=== PATIENT | male | born 1985 | race Caucasian/White ===

== ENCOUNTER 2016-06-30 12:17 | Emergency (ER) | payer OTHER ==
[~2016-06-30] VITALS: Ht 185.4 cm; Wt 167.8 kg
[~2016-06-30 12:17] MED LIST: NORCO 10/325 MG1 TAB PO
[2016-06-30 12:55] VITALS: BP 159/94
--- NOTE | 2016-06-30 14:35 | NUR ---
PATIENT PRESENTS TO ED WITH C/O AGGRAVATED BACK PAIN X2 DAYS---DENIES INCONTINENCE DENIES N/V/D; SKIN IS PINK/WARM/DRY; AAOX4 WITH EVEN AND STEADY GAIT; LUNGS CLEAR BL; HR EVEN AND REGULAR; PT DENIES ANY FEVER, CP, SOB, OR COUGH AT THIS TIME; PATIENT STATES PAIN OF 10/10 AT THIS TIME; VSS; PATIENT POSITIONED FOR COMFORT; HOB ELEVATED; BEDRAILS UP X2; BED DOWN. ER MD MADE AWARE OF PT STATUS.
--- NOTE | 2016-06-30 16:00 | NUR ---
Patient being evaluated by physician at bedside.
[2016-06-30] MEDS ORDERED: KETOROLAC 60 MG/2 ML VIAL IM ONE (16:05)
[2016-06-30 16:27] VITALS: BP 133/76
--- NOTE | 2016-06-30 16:27 | NUR ---
Patient discharged with v/s stable. Written and verbal after care instructions given and explained. Patient alert, oriented and verbalized understanding of instructions. Ambulatory with steady gait. All questions addressed prior to discharge. ID band removed. Patient advised to follow up with PMD. Rx of ULTRAM 50 MG given. Patient educated on indication of medication including possible reaction and side effects. Opportunity to ask questions provided and answered.
== END 2016-06-30 16:27 | disposition home or self-care (01) ==
LOC: MED 12:17
DX: M54.5 Low back pain (principal); G89.29 Other chronic pain; F17.200 Nicotine dependence, unspecified, uncomplicated
CPT/HCPCS: 96372; 99283; J1885

== ENCOUNTER 2016-08-05 08:34 | Emergency (ER) | payer OTHER ==
[~2016-08-05] VITALS: Ht 185.4 cm; Wt 166.9 kg
[2016-08-05 08:49] VITALS: BP 150/104
--- NOTE | 2016-08-05 08:54 | NUR ---
PATIENT AMBULATED TO BED 7 AT THIS TIME.
--- NOTE | 2016-08-05 08:58 | NUR ---
31M BIB SELF C/O BACK PAIN X 9 MONTHS AGO; PT STATES INJURED BY [phone] LB COW CARCUS . PT STATES LOC AT TIME OF INCIDENT FOR UNKN AMOUNT OF TIME. PT STATES PAIN IS AT LOWER AND MIDSECTION OF THE BAVCK W/ PAIN SCALE OF 10/10.PT IS OBESE;DENIES CP/SOB/FEVER/N/V/D/COUGH/RUNNY NOSE.PT STATES HE HAD A CONCUSSSION BEFORE;NO ACUTE DISTRESS NOTED AT THIS TIME;HOB ELEVATED;NEEDS ATTENDED;SAFETY PRECAUTION INSTITUTTED;MD CHILDS AWARE OF PT'S CONDITON.
--- NOTE | 2016-08-05 09:05 | NUR ---
MULTIPLE HEALED SCAR AT THE BACK OF THE HEAD NOTED
--- NOTE | 2016-08-05 09:07 | NUR ---
DR GONZALEZ AT BEDSIDE
--- NOTE | 2016-08-05 09:24 | NUR ---
Patient discharged with v/s stable. Written and verbal after care instructions given and explained. Patient alert, oriented and verbalized understanding of instructions. Ambulatory with steady gait. All questions addressed prior to discharge. ID band removed. Patient advised to follow up with PMD. Rx of MOTRIN,ROBAXIN AND NEURONTIN given. Patient educated on indication of medication including possible reaction and side effects. Opportunity to ask questions provided and answered.ADVISED PT TO REFRAIN FROM STRENOUS ACTIVITIES IF POSSIBLE DUE TO WORK CONDITION UNTIL PAIN SUBSIDE.
[2016-08-05 09:25] VITALS: BP 120/71
== END 2016-08-05 09:24 | disposition home or self-care (01) ==
LOC: MED 08:34
DX: G89.29 Other chronic pain (principal); M54.5 Low back pain; F17.210 Nicotine dependence, cigarettes, uncomplicated; Z71.6 Tobacco abuse counseling

== ENCOUNTER 2016-08-24 15:49 | Inpatient (IN) | payer OTHER ==
[~2016-08-24] VITALS: Ht 185.4 cm; Wt 178.3 kg
[2016-08-24 16:06] VITALS: BP 142/51
[2016-08-24] MEDS ORDERED: ACETAMINOPHEN EXTRA STRENGTH 500 MG TAB ONE (16:14)
--- NOTE | 2016-08-24 16:33 | NUR ---
Patient ambulated to bed 5. RN evaluating patient at bedside.
--- NOTE | 2016-08-24 16:41 | NUR ---
PT PRESENTS TO ER W/C/O N/V SINCE THIS AM. PT STATES HE WAS SEEN IN ER AT [facility] FOR RIGHT CALF PAIN AND WAS GIVEN A TORADOL SHOT, AND NOW HAS N/V. PT STATES HE HAS HAD RECENT INFECTION TO SCALP AND HAD PICC LINE FOR IV ABX, AND FEELS THE INFECTION IS BACK. DENIES DIARRHEA; SKIN IS PINK/WARM/DRY; AAOX4 WITH EVEN AND STEADY GAIT; LUNGS CLEAR BL; HR EVEN AND REGULAR; PT DENIES ANY FEVER, CP, SOB, OR COUGH AT THIS TIME; PATIENT STATES PAIN OF 0/10 AT THIS TIME; VSS; PATIENT POSITIONED FOR COMFORT; HOB ELEVATED; BEDRAILS UP X2; BED DOWN. ER MD MADE AWARE OF PT STATUS.
[2016-08-24] MEDS ORDERED: NACL 0.9% 1,000 ML IV ONE (17:05)
[2016-08-24] MEDS ORDERED: VANCOMYCIN 1,000 MG in DEXTROSE 5% 250 ML IV ONE (17:15)
[2016-08-24] MEDS ORDERED: KETOROLAC 30 MG/ML VIAL IVP ONE (17:15)
[2016-08-24] MEDS ORDERED: ONDANSETRON 4 MG/2 ML VIAL IVP ONE (17:15)
[2016-08-24] MEDS ORDERED: VANCOMYCIN 1,000 MG VIAL ONE (17:25)
[2016-08-24] MEDS ORDERED: PIPERACILLIN/TAZOBACTAM 3.375 GM in DEXTROSE 5% 50 ML IV ONE (17:55)
[2016-08-24] MEDS ORDERED: VANCOMYCIN PER PHARMACY MC PRN (18:00)
[2016-08-24] MEDS ORDERED: ONDANSETRON 4 MG/2 ML VIAL IVP PRN (18:05)
--- NOTE | 2016-08-24 18:25 | NUR ---
Patient will be admitted to care of [facility]. Admited to M/S. Will go to room 118A. Belongings list completed. Report to LARA DE LA CRUZ.
[2016-08-24] MEDS ORDERED: PIPERACILLIN/TAZOBACTAM 3.375 GM VIAL IV ONE (18:52)
[2016-08-24] MEDS ORDERED: VANCOMYCIN 500 MG in DEXTROSE 5% 100 ML IV SCH (18:55)
[2016-08-24 19:30] VITALS: BP 131/71
--- NOTE | 2016-08-24 19:30 | NUR ---
PATIENT ADMIT DX SCALP CELLULITIS PATIENT IS AWAKE ALERT ORIENTED DENIES PAIN UPON ADMISSION.SKIN CHECK DONE WITH LARA PICKERING.POSTERIOR HEAD HAS RAISED RED BUMPS AND ALSO SCARS NOTED TO SCALP AND MISSING PATCHES OF HAIR. SLIGHTLY DRAINING SPECKS OF DRAINAGE NOTED ON PATIENTS PILLOW.IVF INFUSING WELL HE WILL CONTINUE TO RECEIVE ANTIBIOTICS ORDERED.[facility] OF THE [facility] COLLECTED AND WILL BE SENT TO THE LAB.ORIENTATION GIVEN TO NURSING CALL LIGHT SYSTEM AND ROOM. AND PLAN OF CARE DISCUSSED WITH THE PATIENT.
--- NOTE | 2016-08-24 19:45 | NUR ---
ZOSYN IV ANTIBIOTIC CONTINUES TO INFUSE WELL.
[2016-08-24] MEDS: NACL 0.9% 1,000 ML IV SCH (20:00)
[2016-08-24] MEDS: PIPERACILLIN/TAZOBACTAM 3.375 GM in DEXTROSE 5% 50 ML IV SCH (20:25)
--- NOTE | 2016-08-24 21:00 | NUR ---
Patient's Plan of Care was discussed and reviewed with MARKETING AND DEVELOPMENT COORDINATOR: AMINATA AYALA
[2016-08-24] MEDS: MORPHINE SULFATE 4 MG/ML SYR IVP PRN (21:21)
[2016-08-25 00:50] VITALS: BP 135/78
[2016-08-25] MEDS: HYDROcodone/APAP 5/325 MG 1 TAB TAB PO PRN ×2 (00:54→21:34)
--- NOTE | 2016-08-25 00:56 | NUR ---
PATIENT IS HUNGRY I GAVE PATIENT A SANDWICH AND SOME JUICE PATIENT SLEEPING ON AND OFF WATCHING TV.CALL LIGHT WITHIN REACH WILL CONTINUE TO MONITOR.
--- NOTE | 2016-08-25 02:20 | NUR ---
PATIENT STABLE RESTING IN BED WATCHING TV.
--- NOTE | 2016-08-25 04:03 | NUR ---
PT WOKE UP DENIES PAIN AT THIS TIME ENCOURAGED TO ASK FOR ASSISTANCE WILL CONTINUE TO MONITOR.
[2016-08-25] MEDS ORDERED: PIPERACILLIN/TAZOBACTAM 3.375 GM VIAL IV ONE (04:12)
[2016-08-25] MEDS ORDERED: VANCOMYCIN 1,000 MG VIAL ONE (04:16)
[2016-08-25] MEDS: PIPERACILLIN/TAZOBACTAM 3.375 GM in DEXTROSE 5% 50 ML IV SCH (04:46)
[2016-08-25] MEDS: MORPHINE SULFATE 4 MG/ML SYR IVP PRN ×2 (04:57→08:55)
[2016-08-25] MEDS ORDERED: VANCOMYCIN 1,500 MG in DEXTROSE 5% 500 ML IV SCH (05:00)
--- NOTE | 2016-08-25 06:17 | NUR ---
PATIENT AWAKE AND STABLE CURRENTLY WATCHING TV.CALL LIGHT WITHIN REACH WILL CONTINUE TO MONITOR.
--- NOTE | 2016-08-25 07:18 | NUR ---
OH,RETA CALLED ME AND GAVE ME A TELEPHONE ORDER TO KEEP PT NPO.I EXPLAINED TO THE PATIENT NOT TO DRINK OR EAT PT VERBALIZES UNDERSTANDING
--- NOTE | 2016-08-25 07:30 | NUR ---
RECEIVED PT IN BED. ALERT, AWAKE, ORIENTEDX4. BREATHING EVEN AND UNLABORED. DENIES ANY PAIN OR DISCOMFORT AT THIS TIME. POSITIVE BOWEL SOUNDS NOTED ON SHIFT. PT ON NPO. PT AMBULATORY. SAFETY PRECAUTION IN PLACE. CALL LIGHT WITHIN REACH.
--- NOTE | 2016-08-25 07:30 | NUR ---
PATIENT IS NPO REPORT ENDORSED AT BEDSIDE TO LARA CLARKE.
--- NOTE | 2016-08-25 07:42 | NUR ---
PATIENT HAS BEEN SCREENED AND CATEGORIZED HIGH NUTRITION RISK. PATIENT WILL BE SEEN WITHIN 1-2 DAYS OF ADMISSION. 08/25/16-08/26/[address]
[2016-08-25 08:00] VITALS: BP 146/91
--- NOTE | 2016-08-25 12:15 | NUR ---
IV G20 INSERTED ON RIGHT HAND. FLUSHING GOOD. NO INFILTRATION NOTED.
--- NOTE | 2016-08-25 12:44 | NUR ---
PT TRANSFERRED TO OR PER SELINA, ON STABLE CONDITION.
--- NOTE | 2016-08-25 12:47 | NUR ---
SAVANNAH PRECEPTOR SPOKE WITH PHARMACIST ASHWIN REGARDING ZOSYN IVPB AND VANCO IVPB DUE TO BE HUNG AT 1300. PHARMACIST WILL SEND IT ORDER TO OR.
[2016-08-25] MEDS: PIPER/TAZO 3.375GM/D5W PREMIX 50 ML IV SCH ×2 (13:00→20:48)
[2016-08-25] MEDS: VANCOMYCIN 1,500 MG in DEXTROSE 5% 500 ML IV SCH ×2 (13:00→20:51)
[2016-08-25] MEDS ORDERED: BUPIVACAINE-MPF/EPI 0.25% 30 ML VIAL INJ ONE (13:02)
[2016-08-25] MEDS ORDERED: DESFLURANE 240 ML BTL INH ONE (13:09)
[2016-08-25] MEDS ORDERED: ONDANSETRON 4 MG/2 ML VIAL IVP ONE (13:09)
[2016-08-25] MEDS ORDERED: PROPOFOL 200 MG/20 ML VIAL IV ONE (13:09)
[2016-08-25] MEDS ORDERED: LIDOCAINE 1% 50 ML ONE (13:09)
[2016-08-25] MEDS ORDERED: DEXAMETHASONE 4 MG/ML VIAL IVP ONE (13:09)
[2016-08-25] MEDS ORDERED: fentaNYL 0.05 MG/ML VIAL ONE ×2 (13:18→13:56)
[2016-08-25] MEDS ORDERED: MIDAZOLAM 2 MG/2 ML VIAL ONE (13:19)
[2016-08-25] MEDS ORDERED: ONDANSETRON 4 MG/2 ML VIAL IVP PRN (13:50)
[2016-08-25] MEDS ORDERED: LIDOCAINE 1% 500 MG/50 ML VIAL INJ ONE (14:16)
[2016-08-25] MEDS: HYDROmorphone 1 MG/ML AMP IVP PRN ×4 (14:40→15:10)
[2016-08-25] MEDS ORDERED: HYDROmorphone PFS 2 MG/ML SYR ONE (14:51)
--- NOTE | 2016-08-25 16:38 | NUR ---
SPOKE WITH CAITLIN AT [employer]. FAXED INITIAL REVIEW TO [phone] PHONE [phone]
[2016-08-25] MEDS: NACL 0.9% 1,000 ML IV SCH ×2 (16:58→20:43)
--- NOTE | 2016-08-25 19:26 | NUR ---
PT ALERT, AWAKE, NO COMPLAINTS OF PAIN OR DISCOMFORT AT THIS TIME. ENDORSED TO GENERAL DOC NURSE FOR CONTINUITY OF CARE. PT KEPT CLEAN DRY AND COMFORTABLE. NEEDS ATTENDED.
--- NOTE | 2016-08-25 19:30 | NUR ---
RECEIVED REPORT FROM DAY SHIFT NURSE. MI IS AAOX4, HAS NO COMPLAIN OF PAIN AT THIS TIME. NO S/S OF RESPIRATORY DISTRESS/DISCOMFORT NOTED. HAS DRESSING TO HIS HEAD, INTACT. IV SITE IS PATENT AND INTACT. PLAN OF CARE DISCUSSED, VERBALIZED UNDERSTANDING. SAFETY MEASURES CHECKED, CALL LIGHT WITHIN REACH. WILL CONTINUE TO MONITOR.
[2016-08-25 20:00] VITALS: BP 144/80
--- NOTE | 2016-08-25 20:51 | NUR ---
DUE MEDS GIVEN. PT TOLERATED WELL. NO SIGNS OF DISTRESS.
--- NOTE | 2016-08-25 21:13 | NUR ---
NO DISTRESS/SOB NOTED AT THIS TIME. PT INFORMED OF ORDER FOR CPAP WHILE SLEEPING, HOWEVER PT IS REFUSING TO USE CPAP, STATES HE IS CLAUSTROPHOBIC AND IT WILL MAKE HIM VOMIT. ALSO IT WOULD NOT BE POSSIBLE TO SECURE FACE MASK DUE TO PT HAVING A BANDAGE AROUND HIS HEAD DUE TO A SURGERY THIS AFTERNOON AND STILL HAS DRAINAGE FROM SITE, PT RN, MARY INFORMED OF PT REFUSAL AND THAT IT IS NOT POSSIBLE TO SECURE MASK IN PLACE FOR PROPER USE OF CPAP. PT RN WILL INFORM ORDERING MD.
[2016-08-26] VITALS: BP 146/72
--- NOTE | 2016-08-26 | NUR ---
PT ACCIDENTALLY REMOVED HIS DRESSING TO HIS HEAD. PT STATED " I WAS SLEEPING AND I WAS DREAMING THEN SUDDENLY I ACCIDENTALLY REMOVED MY DRESSING". PT APPLIED A DRY DRESSING TO HIS HEAD, HEALTH TEACHING DONE, VERBALIZED UNDERSTANDING. V/S CHECKED AND STABLE. NO COMPLAIN OF PAIN.
--- NOTE | 2016-08-26 02:18 | NUR ---
PT SLEEPING AT THIS TIME. CALL LIGHT WITHIN REACH.
[2016-08-26 04:00] VITALS: BP 113/93
--- NOTE | 2016-08-26 04:45 | NUR ---
RECEIVED A CALL FROM JASON(LABORATORY), REPORTED A CRITICAL VALUE OF VANCOMYCIN TROUGH OF 15.9. READ BACK AND VERIFIED. WILL INFORM CHARGE NURSE.
--- NOTE | 2016-08-26 04:53 | NUR ---
CALLED PHARMACY AND SPOKE WITH SAIRA VIA PHONE. REPORTED THE RESULT OF VANCOMYCIN TROUGH AND STATED " OK TO GIVE" CHARGE NURSE MADE AWARE.
[2016-08-26] MEDS: PIPER/TAZO 3.375GM/D5W PREMIX 50 ML IV SCH ×3 (05:13→20:48)
[2016-08-26] MEDS: VANCOMYCIN 1,500 MG in DEXTROSE 5% 500 ML IV SCH (05:38)
--- NOTE | 2016-08-26 07:30 | NUR ---
ENDORSED REPORT TO DAY SHIFT NURSE FOR CONTINUITY OF CARE. PT IS STABLE.
--- NOTE | 2016-08-26 07:40 | NUR ---
RECEIVED PT SLEEPING IN BED COMFORTABLY AND WAS IN NO DISTRESS. PT EASILY AWAKENED AND VOICED NO C/O PAIN AT THIS TIME. PT'S SCALP DRESSINGS NOTED TO BE CLEAN, DRY AND INTACT. PLAN OF CARE, MEDS, TREATMENTS AND SAFETY DISCUSSED WITH PT AND PT VERBALIZED UNDERSTANDING. WILL CONTINUE TO CHECK ON PT.
[2016-08-26 08:00] VITALS: BP 141/86
--- NOTE | 2016-08-26 09:30 | NUR ---
PT TOOK DIET AND FLUIDS WELL . PT AMBULATING IN HIS ROOM WITH STEADY GAIT.
[2016-08-26] MEDS: NACL 0.9% 1,000 ML IV SCH ×2 (10:03→23:23)
--- NOTE | 2016-08-26 10:59 | NUR ---
08/26/16 RD INITIAL ASSESSMENT COMPLETED PLEASE REFER TO NUTRITION ASSESSMENT UNDER CARE ACTIVITY FOR ESTIMATED NUTRITIONAL NEEDS. RD RECOMMENDATIONS: 1. CONTINUE REGULAR DIET TOLERATED 2. ENCOURAGE ADEQUATE PO INTAKE FOR SURGICAL HEALING 3. RD WILL F/U 3-5 DAYS; MODERATE RISK. GERIR PINON RD
[2016-08-26 12:00] VITALS: BP 124/81
[2016-08-26] MEDS: HYDROcodone/APAP 5/325 MG 1 TAB TAB PO PRN (12:13)
--- NOTE | 2016-08-26 12:13 | NUR ---
PT MEDICATED WITH NORCO PER PRN ORDER FOR C/O PAIN IN HIS SCALP 10/01. WILL CONTINUE TO MONITOR PT.
[2016-08-26] MEDS: ENOXAPARIN 40 MG/0.4 ML SYR SUBQ SCH (12:41)
[2016-08-26] MEDS: VANCOMYCIN 1,250 MG in DEXTROSE 5% 250 ML IV SCH ×2 (13:40→21:34)
--- NOTE | 2016-08-26 14:55 | NUR ---
FAXED CONCURRENT REVIEW TO [facility] [phone] PHONE JERARDO [phone]
[2016-08-26 16:00] VITALS: BP 123/70
--- NOTE | 2016-08-26 16:59 | NUR ---
WOUND CARE NOTES: DRESSING CHANGE DONE RE: S/P I&D AND EXCISIONAL DEBRIDEMENT 08/25/[address] LOCKHART. PICTURES OBTAINED AND PLACED IN THE CHART. PATIENT TOLERATED PROCEDURE WELL.
[2016-08-26] MEDS ORDERED: GAUZE TP PRN (17:05)
[2016-08-26] MEDS: MORPHINE SULFATE 4 MG/ML SYR IVP PRN (17:09)
--- NOTE | 2016-08-26 17:09 | NUR ---
PT MEDICATED WITH MORPHINE PER PRN ORDER FOR PAIN 9/10 IN PT'S SCALP SURGICAL SITE POST DRESSINGS CHANGE.
--- NOTE | 2016-08-26 19:29 | NUR ---
REPORT GIVEN TO MARY BERMUDEZ AT BEDSIDE. PT STATED THAT HIS PAIN WAS BETTER.
--- NOTE | 2016-08-26 19:35 | NUR ---
LOIDA. REPORT FROM LARA HERNANDEZ FOR CONTINUITY OF CARE. PATIENT SITTING ON BED, AWAKE, A/OX4, PLEASANT AND COOPERATIVE. RESPIRATION EVEN AND UNLABORED. IV OF NS INFUSING AT 75 ML/HR RIGHT AC G20. WOUND IN THE HEAD COVERED WITH DRESSING DRY AND INTACT. PLAN OF CARE FOR THE SHIFT DISCUSSED. VERBALIZED UNDERSTANDING. PAIN IN THE SITE 06/03, STATED TOLERABLE. WILL MEDICATE ORDERED. WILL CALL NURSE WHEN PAIN INCREASES. ON IV ANTIBIOTICS.
[2016-08-26 20:00] VITALS: BP 123/62
--- NOTE | 2016-08-26 20:00 | NUR ---
Patient's Plan of Care was discussed and reviewed with AUTOMOTIVE GENERAL MANAGER: GERMANIA ANDERSON
--- NOTE | 2016-08-26 20:48 | NUR ---
DUE ZOSYN 3.375 MG IVPB ADMINISTERED AT THIS TIME.
--- NOTE | 2016-08-26 21:00 | NUR ---
TAKE SHOWER, BACK TO BED AFTER TAKING A BATH.
--- NOTE | 2016-08-26 21:34 | NUR ---
DUE VANCOCIN ADMINISTERED AT THIS TIME.
[2016-08-27] VITALS: BP 132/83
[2016-08-27] MEDS: MORPHINE SULFATE 4 MG/ML SYR IVP PRN ×2 (00:16→04:56)
--- NOTE | 2016-08-27 01:00 | NUR ---
IN THE BR SPEAKING WITH SOMEBODY IN THE CELLPHONE. BACK TO BED AND ADVISED TO GO BACK TO SLEEP.
[2016-08-27] MEDS: VANCOMYCIN 1,250 MG in DEXTROSE 5% 250 ML IV SCH ×2 (04:13→14:13)
--- NOTE | 2016-08-27 04:13 | NUR ---
VANCOCIN 1250 MG ADMINISTERED IVPB. NO ADVERSE REACTIONS TO ANTIBIOTIC THERAPY NOTED AT THIS TIME.
[2016-08-27] MEDS: PIPER/TAZO 3.375GM/D5W PREMIX 50 ML IV SCH ×2 (04:57→13:35)
--- NOTE | 2016-08-27 06:00 | NUR ---
AMBULATED TO BR TO VOID. GAIT STEADY.
--- NOTE | 2016-08-27 07:23 | NUR ---
RECEIVED REPORT FROM SABRINA SOLO. PT IS A/OX4, IV IS ON RT AC, PATENT, INTACT, INFUSING WELL, PT HAS SCALP CELLULITIS, DRESSING IN PLACE AND INTACT, NO S/S OF RESPIRATORY DISTRESS OR DISCOMFORT NOTED, SAFETY/FALL PRECAUTIONS IN PLACE DISCUSSED PLAN OF CARE WITH PT, PT VERBALIZED UNDERSTANDING, CALL LIGHT IS WITHIN REACH, WILL CONTINUE TO MONITOR.
--- NOTE | 2016-08-27 07:25 | NUR ---
CONDITION REMAIN STABLE. ENDORSED TO LARA MCBRIDE FOR CONTINUITY OF CARE.
[2016-08-27] MEDS ORDERED: KEFLEX250 MG PO (07:52)
[2016-08-27] MEDS ORDERED: PERCOCET 325 MG1 TA1 PO (07:55)
[2016-08-27 08:00] VITALS: BP 128/76
[2016-08-27] MEDS: ENOXAPARIN 40 MG/0.4 ML SYR SUBQ SCH (08:46)
--- NOTE | 2016-08-27 09:50 | NUR ---
DUE MEDICATIONS GIVEN. PT TOLERATED WELL, NO S/S OF RESPIRATORY DISTRESS OR DISCOMFORT NOTED, CALL LIGHT WITHIN REACH, WILL CONTINUE TO MONITOR.
--- NOTE | 2016-08-27 11:12 | NUR ---
CM NOTE FAXED CONCURRENT REVIEW TO [facility] [phone] PHONE [facility] [phone]
--- NOTE | 2016-08-27 11:55 | NUR ---
PT SITTING IN BED WATCHING TV.
[2016-08-27] MEDS ORDERED: GAUZE TP SCH (13:00)
--- NOTE | 2016-08-27 13:00 | NUR ---
PT DRESSING CHANGED MINIMAL DRAINAGE NOTED, PT TOLERATED WELL. CALL LIGHT WITHIN REACH, WILL CONTINUE TO MONITOR.
--- NOTE | 2016-08-27 13:00 | NUR ---
DUE MEDICATIONS GIVEN. PT TOLERATED WELL, WILL CONTINUE TO MONITOR.
[2016-08-27] MEDS: NACL 0.9% 1,000 ML IV SCH (13:30)
--- NOTE | 2016-08-27 14:30 | NUR ---
0125 CALL PLACED TO ISABEL BURCIAGA AT [facility] [phone] AND LEFT REQUESTING AUTHORIZATION FOR HOME HEALTH VISITS FOR WOUND CARE AND NAME OF CONTRACTED AGENCY.
--- NOTE | 2016-08-27 15:01 | NUR ---
PATRICA NOTE 1400 CALL PLACED TO ISABEL BURCIAGA AT [facility] [phone] AND LEFT REQUESTING AUTHORIZATION FOR HOME HEALTH VISITS FOR WOUND CARE AND NAME OF CONTRACTED AGENCY. NO CALL BACK.
--- NOTE | 2016-08-27 15:20 | NUR ---
PATRICA WING RECEIVED CALL FROM ALLIED PHYSICIAN ABIMBOLA HALL PH# [phone] AND SHE SAID TO GO AHEAD AND USE [facility] AND TO HAVE THEM CALL HER FOR THE AUTH NUMBER. PATRICA HERRERA AND ARTURO RODRÍGUEZ AWARE. Addendum: 08/27/16 at 1525 by Janet Joyner CM CHARGE NURSE ANAIS PARKER [phone]
--- NOTE | 2016-08-27 15:30 | NUR ---
INFORMED PT DR. LOCKHART HAD ORDERED HIS DISCHARGE. PT VERBALIZED UNDERSTANDING
--- NOTE | 2016-08-27 16:00 | NUR ---
PT DISCHARGE INSTRUCTIONS GIVEN, REMOVED ID WRIST BAND, REMOVED IV, CATHETER TIP INTACT. PT STABLE UPON DISCHARGE.
--- NOTE | 2016-08-27 16:26 | NUR ---
SS NOTE: PER OLGA FROM [facility] ([phone]), THEY WILL FOLLOW UP WITH PT AT HOME.
== END 2016-08-27 16:50 | disposition home health service (06) | DRG 570 ==
LOC: MED 15:49 → MTU 18:05
PROVIDERS: ADMIT Hospitalist; ATTEND Hospitalist
PROC: 0W900ZZ Drainage of Head, Open Approach (ICD-10-PCS; 2016-08-25)
PROC: 0JB00ZZ Excision of Scalp Subcutaneous Tissue and Fascia, Open Approach (ICD-10-PCS; principal; 2016-08-25 12:30)
DX: L02.811 Cutaneous abscess of head [any part, except face] (principal); J18.9 Pneumonia, unspecified organism; Z68.43 Body mass index [BMI] 50.0-59.9, adult; E66.01 Morbid (severe) obesity due to excess calories; F17.210 Nicotine dependence, cigarettes, uncomplicated; G47.30 Sleep apnea, unspecified; I10 Essential (primary) hypertension; L03.811 Cellulitis of head [any part, except face]

== ENCOUNTER 2016-09-29 11:45 | Emergency (ER) | payer OTHER ==
[~2016-09-29] VITALS: Ht 185.4 cm; Wt 165.6 kg
[~2016-09-29 11:45] MED LIST changes: +KEFLEX250 MG PO; +PERCOCET 325 MG1 TA1 PO
[2016-09-29 11:52] VITALS: BP 159/71
--- NOTE | 2016-09-29 11:57 | NUR ---
PATIENT TAKEN TO BED # 8
--- NOTE | 2016-09-29 11:58 | NUR ---
PATIENT PRESENTS TO ED WITH C/O PAIN ON SCALP X2 DAYS; PT STATES HAD SURGERY ON SCALP ON LAST VISIT NOW ITS DRAINING WITH BURNING PAIN SENSATION. DENIES N/V/D; SKIN IS PINK/WARM/DRY; AAOX4 WITH EVEN AND STEADY GAIT; LUNGS CLEAR BL; HR EVEN AND REGULAR; PT DENIES ANY FEVER, CP, SOB, OR COUGH AT THIS TIME; PATIENT STATES PAIN OF 7/10 AT THIS TIME; VSS; PATIENT POSITIONED FOR COMFORT; HOB ELEVATED; BEDRAILS UP X2; BED DOWN. ER MD MADE AWARE OF PT STATUS.
--- NOTE | 2016-09-29 11:59 | NUR ---
AAO PT BEING ASSESS BY DR MONIQUE AT BEDSIDE
[2016-09-29 12:19] VITALS: BP 127/90
== END 2016-09-29 12:19 | disposition home or self-care (01) ==
LOC: MED 11:45
DX: L02.811 Cutaneous abscess of head [any part, except face] (principal); R03.0 Elevated blood-pressure reading, without diagnosis of hypertension

== ENCOUNTER 2016-10-08 17:02 | Emergency (ER) | payer OTHER ==
[~2016-10-08] VITALS: Ht 185.4 cm; Wt 167.8 kg
[2016-10-08 17:18] VITALS: BP 159/93
--- NOTE | 2016-10-08 19:55 | NUR ---
PT TAKEN TO BED 8
--- NOTE | 2016-10-08 19:57 | NUR ---
Dr. Lang evaluating patient at bedside.
--- NOTE | 2016-10-08 20:00 | NUR ---
31Y/M PATIENT PRESENTS TO ED WITH HEADACHE X 1 DAY. PT STATES HAVING HEADACHE AND LT. SIDE NUMBNESS . DENIES N/V/D; SKIN IS PINK/WARM/DRY; AAOX4 WITH EVEN AND STEADY GAIT; LUNGS CLEAR BL; HR EVEN AND REGULAR; PT DENIES ANY FEVER, CP, SOB, OR COUGH AT THIS TIME; PATIENT STATES PAIN OF 0/10 AT THIS TIME; VSS; PATIENT POSITIONED FOR COMFORT; HOB ELEVATED; BEDRAILS UP X2; BED DOWN. ER MD MADE AWARE OF PT STATUS.
[2016-10-08] MEDS ORDERED: KETOROLAC 60 MG/2 ML VIAL IM ONE (20:05)
--- NOTE | 2016-10-08 21:00 | NUR ---
Patient discharged with v/s stable. Written and verbal after care instructions given and explained. Patient alert, oriented and verbalized understanding of instructions. Ambulatory with steady gait. All questions addressed prior to discharge. ID band removed. Patient advised to follow up with PMD. Rx of MOTRIN 800 MG given. Patient educated on indication of medication including possible reaction and side effects. Opportunity to ask questions provided and answered.
[2016-10-08 21:04] VITALS: BP 125/77
== END 2016-10-08 21:00 | disposition home or self-care (01) ==
LOC: MED 17:02
DX: R51 Headache (principal); R03.0 Elevated blood-pressure reading, without diagnosis of hypertension; Z71.6 Tobacco abuse counseling
CPT/HCPCS: 96372; 99283; J1885

== ENCOUNTER 2017-08-03 18:13 | Emergency (ER) | payer OTHER ==
[~2017-08-03] VITALS: Ht 185.4 cm; Wt 176.4 kg
[~2017-08-03 18:13] MED LIST changes: +ACET-2858 PO; +ACET-5629 PO; +CEPH250C16 PO; -KEFLEX250 MG PO; -NORCO 10/325 MG1 TAB PO; -PERCOCET 325 MG1 TA1 PO
[2017-08-03 18:19] VITALS: BP 141/86
--- NOTE | 2017-08-03 18:30 | NUR ---
PATIENT PRESENTS TO ED WITH SOB AND INTERMITTENT PRODUCTIVE COUGH X 4 DAYS, "FELT HOT TODAY" "BURNING SENSATION" CHEST PAIN WITH DEEP BREATHING. RESP EVEN AND UNLABORED, IN NAD. MED HX: NONE RX: NONE . DENIES N/V/D; SKIN IS PINK/WARM/DRY; AAOX4 WITH EVEN AND STEADY GAIT; LUNGS CLEAR BL; HR EVEN AND REGULAR; PT DENIES ANY FEVER, CP, SOB, OR COUGH AT THIS TIME; PATIENT STATES PAIN OF 0/10 AT THIS TIME; VSS; PATIENT POSITIONED FOR COMFORT; ER MD MADE AWARE OF PT STATUS.
--- NOTE | 2017-08-03 19:18 | NUR ---
PT TAKEN OFF THE UNIT FOR XRAY
--- NOTE | 2017-08-03 19:25 | NUR ---
REPORT GIVEN TO LARA PATTERSON FOR CONTINUATION OF CARE
[2017-08-03 20:20] VITALS: BP 157/96
--- NOTE | 2017-08-03 20:20 | NUR ---
Patient discharged with v/s stable. Written and verbal after care instructions given and explained. Patient alert, oriented and verbalized understanding of instructions. Ambulatory with steady gait. All questions addressed prior to discharge. ID band removed. Patient advised to follow up with PMD. Rx of ALBUTEROL, ZITRHOMAX, ROBITUSSIN given. Patient educated on indication of medication including possible reaction and side effects. Opportunity to ask questions provided and answered.
== END 2017-08-03 20:20 | disposition home or self-care (01) ==
LOC: MED 18:13
DX: J40 Bronchitis, not specified as acute or chronic (principal); Z79.899 Other long term (current) drug therapy
CPT/HCPCS: 71046; 99284

== ENCOUNTER 2017-10-23 06:05 | Emergency (ER) | payer OTHER ==
[~2017-10-23] VITALS: Ht 185.4 cm; Wt 171.5 kg
--- NOTE | 2017-10-23 06:10 | NUR ---
PT AMBULATED TO ER BED 12
[2017-10-23 06:12] VITALS: BP 119/83
--- NOTE | 2017-10-23 06:35 | NUR ---
32Y/M PT C/O ABD PAIN TO RT SIDE X3 DAYS, W/ N/V. ABD IS ROUND, SOFT, TENDER TO RT SIDE, ACTIVE BS X4. PT STATES PAIN RADIATES TO BACK UPON MOVEMENT. PT APPEARS TO BE IN NO ACUTE DISTRESS AT THIS TIME. PMH CHRONIC BACK PAIN NKDA
--- NOTE | 2017-10-23 07:16 | NUR ---
RECEIVED REPORT FROM ANNALISE BERMUDEZ FOR CONTINUITY OF CARE.
--- NOTE | 2017-10-23 07:18 | NUR ---
Patient being evaluated by physician at bedside.
[2017-10-23] MEDS ORDERED: NACL 0.9% 1,000 ML IV SCH (07:23)
[2017-10-23] MEDS ORDERED: GLYCOPYRROLATE 0.2 MG/ML VIAL IV ONE (07:25)
[2017-10-23] MEDS ORDERED: METOCLOPRAMIDE 10 MG/2 ML INJ VIAL IVP ONE (07:25)
[2017-10-23] MEDS ORDERED: HYDROmorphone PFS 2 MG/ML SYR IVP ONE (07:25)
[2017-10-23] MEDS ORDERED: KETOROLAC 30 MG/ML VIAL IVP ONE (07:25)
--- NOTE | 2017-10-23 07:25 | NUR ---
PT APPEARS TO BE TALKING ON PHONE IN NO APPEART DISTRESS. WILL CONTINUE TO MONITOR.
[2017-10-23 07:42] LABS: BASOPHILS # (AUTO) 0.1 K/uL (0.00-0.22); BASOPHILS % (AUTO) 0.8 % (0.0-2.0); EOSINOPHILS # (AUTO) 0.2 K/uL (0-0.4); EOSINOPHILS % (AUTO) 1.7 % (0.0-4.0); HEMATOCRIT 43.8 % (36-52); HEMOGLOBIN 14.3 g/dL (12.0-18.0); LYMPHOCYTES # (AUTO) 4.8 K/uL (2.0-11.5); LYMPHOCYTES % (AUTO) 39.5 % (20.5-51.1); MEAN CORPUSCULAR HEMOGLOBIN 29 pg (27-31); MEAN CORPUSCULAR HGB CONC 33 g/dL (33-37); MEAN CORPUSCULAR VOLUME 87.9 fL (80-94); MONOCYTES % (AUTO) 7.9 % (1.7-9.3); NEUTROPHILS % (AUTO) 50.1 % (42.2-75.2); PLATELET COUNT (AUTO) 294 K/uL (140-450); RED BLOOD CELL COUNT(AUTO) 4.99 MIL/uL (4.20-6.10); RED CELL DISTRIBUTION WIDTH 14.2 % (11.6-13.7); WHITE BLOOD COUNT (AUTO) 12.1 K/uL (4.8-10.8)
[2017-10-23 07:51] LABS: APPEARANCE,URINE CLEAR (CLEAR); BILIRUBIN,URINE NEGATIVE (NEGATIVE); BLOOD, URINE NEGATIVE (NEGATIVE); COLOR,URINE YELLOW (YELLOW); LEUKOCYTE ESTERASE ,URINE NEGATIVE (NEGATIVE); NITRITE, URINE NEGATIVE (NEGATIVE); UGLUCOSE NEGATIVE (NEGATIVE)
[2017-10-23 07:53] LABS: ANION GAP 11.1 (8-16); CARBON DIOXIDE 28.2 mmol/L (21-32); POTASSIUM 4.3 mmol/L (3.5-5.1)
[2017-10-23 07:55] LABS: RBC,URINE 0-5 (RARE) /HPF (0-5); WBC,URINE 0-5 (RARE) /HPF (0-5)
--- NOTE | 2017-10-23 08:05 | NUR ---
ULTRASOUND AT BEDSIDE
[2017-10-23 08:06] LABS: ALBUMIN 3.3 g/dL (3.4-5.0); TOTAL BILIRUBIN 0.3 mg/dL (0.0-1.0)
--- NOTE | 2017-10-23 08:43 | NUR ---
PT TO CT WITH [facility] M[facility]INE [facility]PER[facility]. PT IN NO APPARENT DISTRESS AT THIS TIME
--- NOTE | 2017-10-23 09:05 | NUR ---
PT BACK FROM CT. VSS. WILL CONTINUE TO MONITOR
[2017-10-23 10:28] VITALS: BP 135/79
--- NOTE | 2017-10-23 10:28 | NUR ---
Patient discharged with v/s stable. Written and verbal after care instructions given and explained. Patient alert, oriented and verbalized understanding of instructions. Ambulatory with steady gait. All questions addressed prior to discharge. ID band removed. Patient advised to follow up with PMD. Rx of LEVSIN SL given. Patient educated on indication of medication including possible reaction and side effects. Opportunity to ask questions provided and answered.
== END 2017-10-23 10:28 | disposition home or self-care (01) ==
LOC: MED 06:05
DX: K80.20 Calculus of gallbladder without cholecystitis without obstruction (principal); E66.01 Morbid (severe) obesity due to excess calories; R11.0 Nausea; F17.210 Nicotine dependence, cigarettes, uncomplicated; Z79.899 Other long term (current) drug therapy
CPT/HCPCS: 36415; 74177; 76705; 80053; 81001; 82150; 83690; 85025; 96361; 96374; 96375; 99285; J1170; J1885; J3490; Q0092; Q9967

== ENCOUNTER 2017-11-24 06:05 | Emergency (ER) | payer OTHER ==
[~2017-11-24] VITALS: Ht 185.4 cm; Wt 171.5 kg
[2017-11-24 06:11] VITALS: BP 128/88
--- NOTE | 2017-11-24 06:13 | NUR ---
TO BED # 5 AMBULATORY
--- NOTE | 2017-11-24 06:20 | NUR ---
32/M CAME IN ED, C/O 03/03 CONSTANT ACHING, DULL EAR PAIN, RADIATING TO R SIDE OF FACE, X3 DAYS. PT DENIES TRAUMA, NO OBVIOUS ABNORMALITY NOTED. HX GALLSTONE. PT DENIES N/V/D; SKIN IS INTACT, PINK/WARM/DRY; AAOX4, PERRL, WITH EVEN AND STEADY GAIT; LUNGS CLEAR BL, BREATHING UNLABORED; HR EVEN AND REGULAR, BL PERIPHERAL PULSES PRESENT; BS ACTIVE X4, NO TENDERNESS TO PALPATION; PT DENIES ANY FEVER, CP, SOB, OR COUGH AT THIS TIME; PATIENT POSITIONED FOR COMFORT; HOB ELEVATED; BEDRAILS UP X2; BED DOWN.
--- NOTE | 2017-11-24 06:23 | NUR ---
Dr. Siegel evaluating patient at bedside.
[2017-11-24] MEDS ORDERED: ACETAMINOPHEN EXTRA STRENGTH 500 MG TAB PO ONE (06:25)
[2017-11-24 06:42] VITALS: BP 128/88
--- NOTE | 2017-11-24 06:42 | NUR ---
Patient discharged with v/s stable. Written and verbal after care instructions given and explained. Patient alert, oriented and verbalized understanding of instructions. Ambulatory with steady gait. All questions addressed prior to discharge. ID band removed. Patient advised to follow up with PMD. Rx of TYLENOL, AUGMENTIN given. Patient educated on indication of medication including possible reaction and side effects. Opportunity to ask questions provided and answered.
== END 2017-11-24 06:42 | disposition home or self-care (01) ==
LOC: MED 06:05
DX: H65.91 Unspecified nonsuppurative otitis media, right ear (principal); K21.9 Gastro-esophageal reflux disease without esophagitis
CPT/HCPCS: 99283

== ENCOUNTER 2017-11-25 06:59 | Emergency (ER) | payer OTHER ==
[~2017-11-25] VITALS: Ht 185.4 cm; Wt 171.5 kg
[2017-11-25 07:14] VITALS: BP 145/89
--- NOTE | 2017-11-25 07:17 | NUR ---
PATIENT AMBULATED TO BED#11
--- NOTE | 2017-11-25 07:30 | NUR ---
PATIENT PRESENTS TO ED WITH COMPLAINTS OF RIGHT EAR PAIN. PATIENT REPORTS BEING SEEN YESTERDAY AND WAS DIAGNOSED WITH EAR INFECTION. PATIENT WAS PRESECRIBED TYLENOL AND AUGMENTIN; PATIENT STATES NO RELIEF FROM PAIN. DENIES N/V/D; SKIN IS PINK/WARM/DRY; AAOX4 WITH EVEN AND STEADY GAIT; LUNGS CLEAR BL; HR EVEN AND REGULAR; PT DENIES ANY FEVER, CP, OR SOB AT THIS TIME; PATIENT STATES PAIN OF 9/10 AT THIS TIME; VSS; PATIENT POSITIONED FOR COMFORT; HOB ELEVATED; BEDRAILS UP X1; BED DOWN. ER MD MADE AWARE OF PT STATUS.
[2017-11-25] MEDS ORDERED: IBUPROFEN 800 MG TAB PO ONE (07:45)
--- NOTE | 2017-11-25 07:55 | NUR ---
PATIENT WAS ORDERED 800 MOTRIN; PATIENT REFUSED. ED MD MADE AWARE.
[2017-11-25] MEDS ORDERED: ACETAMINOPHEN EXTRA STRENGTH 500 MG TAB PO ONE (08:00)
--- NOTE | 2017-11-25 08:05 | NUR ---
PATIENT REFUSED TYLENOL. ED MD MADE AWARE.
--- NOTE | 2017-11-25 08:08 | NUR ---
PATIENT REUSED TREATMENT AND LEFT ED. ED MD MADE AWARE.
[2017-11-25 08:10] VITALS: BP 145/89
== END 2017-11-25 08:08 | disposition left against medical advice (07) ==
LOC: MED 06:59
DX: H60.501 Unspecified acute noninfective otitis externa, right ear (principal); R03.0 Elevated blood-pressure reading, without diagnosis of hypertension; K21.9 Gastro-esophageal reflux disease without esophagitis
CPT/HCPCS: 99283

== ENCOUNTER 2018-05-12 02:00 | Emergency (ER) | payer SELFPAY ==
[~2018-05-12] VITALS: Ht 185.4 cm; Wt 205.0 kg
[~2018-05-12 02:00] MED LIST changes: -ACET-2858 PO; +HYDR-5092 PO
[2018-05-12 02:05] VITALS: BP 168/108
--- NOTE | 2018-05-12 02:08 | NUR ---
PT AMBULATORY TO ER BED 3.
[2018-05-12] MEDS ORDERED: LIDOCAINE 2% 1000 MG/50 ML VIAL INJ ONE (02:10)
--- NOTE | 2018-05-12 02:15 | NUR ---
PT PRESENTS TO ED WITH C/O ABSCESS TO RIGHT HEAD WITH INCREASING PAIN X 2 DAYS. PT REPORTS PREVIOUS HX OF ABSCESS TO HEAD. NO BLEEDING, DISCHARGE, OR REDNESS TO SITE. PT PLACED INTO BED, PENDING MD VANG.
[2018-05-12] MEDS ORDERED: SULFAMETH/TRIMETH DS 800/160MG 1 TAB PO ONE (03:20)
[2018-05-12] MEDS ORDERED: KETOROLAC 60 MG/2 ML VIAL IM ONE (03:20)
--- NOTE | 2018-05-12 03:48 | NUR ---
Patient discharged with v/s stable. Written and verbal after care instructions given and explained. Patient alert, oriented and verbalized understanding of instructions. Ambulatory with steady gait. All questions addressed prior to discharge. ID band removed. Patient advised to follow up with PMD. Rx of BACTRIM, TRAMADOL given. Patient educated on indication of medication including possible reaction and side effects. Opportunity to ask questions provided and answered.
[2018-05-12 03:49] VITALS: BP 156/112
== END 2018-05-12 03:48 | disposition home or self-care (01) ==
LOC: MED 02:00
DX: L02.811 Cutaneous abscess of head [any part, except face] (principal); R03.0 Elevated blood-pressure reading, without diagnosis of hypertension; K21.9 Gastro-esophageal reflux disease without esophagitis; Z79.2 Long term (current) use of antibiotics; Z79.891 Long term (current) use of opiate analgesic
CPT/HCPCS: 10060; 96372; 99283; J1885; J2001

== ENCOUNTER 2018-08-03 22:03 | Emergency (ER) | payer OTHER ==
[~2018-08-03] VITALS: Ht 185.4 cm; Wt 216.8 kg
[2018-08-03 22:54] VITALS: BP 143/94
--- NOTE | 2018-08-03 23:01 | NUR ---
PT AMBULATED TO [facility]. PROVIDED URINE.
--- NOTE | 2018-08-03 23:12 | NUR ---
PT AMBULATED TO ER BED 08
--- NOTE | 2018-08-03 23:18 | NUR ---
BIB FRIEND. ABSCESS TO LLQ ABD SHOOTING PAIN THROUGHOUT ABD X 10 DAYS. WORSENING PAIN, 03/03. HOSPITALIZED FOR [facility]. 1.5 WEEKS AT [facility] IN 2017. AFEBRILE. HR 105. PATIENT STATES HE HAS AN ABCESS ON HIS HEAD THAT HE IS SUPPOSE TO HAVE SURGERY AT [place] BUT DOES NOT KNOW WHEN. DENIES NVD, COUGH, CP, SOB AT THIS TIME.
[2018-08-03] MEDS ORDERED: LIDOCAINE 2% 1000 MG/50 ML VIAL INJ ONE (23:30)
--- NOTE | 2018-08-03 23:33 | NUR ---
DR ROMAN AT BEDSIDE.
[2018-08-03] MEDS ORDERED: IBUPROFEN 800 MG TAB PO ONE (23:50)
[2018-08-04 00:01] VITALS: BP 143/94
--- NOTE | 2018-08-04 00:02 | NUR ---
Patient discharged with v/s stable. Written and verbal after care instructions given and explained. Patient alert, oriented and verbalized understanding of instructions. Ambulatory with steady gait. All questions addressed prior to discharge. ID band removed. Patient advised to follow up with PMD. Rx of bactrim, motrin given. Patient educated on indication of medication including possible reaction and side effects. Opportunity to ask questions provided and answered.
== END 2018-08-04 00:01 | disposition home or self-care (01) ==
LOC: MED 22:03
DX: L02.211 Cutaneous abscess of abdominal wall (principal); R03.0 Elevated blood-pressure reading, without diagnosis of hypertension; K21.9 Gastro-esophageal reflux disease without esophagitis; Z79.899 Other long term (current) drug therapy
CPT/HCPCS: 10060; 99283; J2001

== ENCOUNTER 2018-08-08 00:03 | Emergency (ER) | payer OTHER ==
[~2018-08-08] VITALS: Ht 185.4 cm; Wt 213.2 kg
[2018-08-08 00:09] VITALS: BP 130/78
--- NOTE | 2018-08-08 00:09 | NUR ---
TO ER BED 9
[2018-08-08] MEDS ORDERED: MORPHINE SULFATE 4 MG/ML SYR IM ONE (00:20)
[2018-08-08] MEDS ORDERED: ONDANSETRON 4 MG ODT PO ONE (00:20)
--- NOTE | 2018-08-08 02:19 | NUR ---
PER ORDER FROM DR MORALES, DRESSING TAPED OVER WOUND ON L SIDE OF ABDOMEN
--- NOTE | 2018-08-08 02:40 | NUR ---
Patient discharged with v/s stable. Written and verbal after care instructions given and explained. Patient alert, oriented and verbalized understanding of instructions. Ambulatory with steady gait. All questions addressed prior to discharge. ID band removed. Patient advised to follow up with PMD. Rx of Keflex, [place], and Zofran given. Patient educated on indication of medication including possible reaction and side effects. Opportunity to ask questions provided and answered.
[2018-08-08 02:45] VITALS: BP 132/76
== END 2018-08-08 02:40 | disposition home or self-care (01) ==
LOC: MED 00:03
DX: L02.211 Cutaneous abscess of abdominal wall (principal); R11.2 Nausea with vomiting, unspecified; K21.9 Gastro-esophageal reflux disease without esophagitis; Z79.2 Long term (current) use of antibiotics; Z79.891 Long term (current) use of opiate analgesic; Z79.899 Other long term (current) drug therapy
CPT/HCPCS: 96372; 99283; J2270; Q0162

== ENCOUNTER 2018-09-22 02:48 | Emergency (ER) | payer OTHER ==
[~2018-09-22] VITALS: Ht 185.4 cm; Wt 220.9 kg
[2018-09-22 02:52] VITALS: BP 148/79
--- NOTE | 2018-09-22 02:52 | NUR ---
TO BED # 11 AMBULATORY ,REPORT GIVEN TO JOEY BERMUDEZ
--- NOTE | 2018-09-22 03:04 | NUR ---
33 YO M C/O SOB AND COUGH X 2 DAYS WELL BILATERAL LEG SWELLING X 1 WEEK. -- DIMINISHED LUNG SOUNDS AUSCULTATED BILATERALLY. BREATHING APPEARS EVEN, UNLABORED. NO NASAL FLARING OR RETRACTIONS NOTED. SP02: 97% -- BILATERAL LOWER LEG SWELLING NOTED WITH PITTING EDEMA 1+. -- SKIN PINK, DRY, WARM. -- DENIES CHEST PAIN. PMH-- CHRONIC HEAD SORES RX-- DENIES PT POSITIONED FOR COMFORT. HOB ELEVATED TO HIGH FOWLERS. SIDE RAIL UP X1. BED IN LOWEST POSITION.
--- NOTE | 2018-09-22 03:06 | NUR ---
Dr. Williamson evaluating patient at bedside.
--- NOTE | 2018-09-22 03:15 | NUR ---
LAB DRAWING AT BEDSIDE.
[2018-09-22 03:25] LABS: BASOPHILS # (AUTO) 0.1 K/uL (0.00-0.22); BASOPHILS % (AUTO) 0.5 % (0.0-2.0); EOSINOPHILS # (AUTO) 0.3 K/uL (0-0.4); EOSINOPHILS % (AUTO) 2.7 % (0.0-4.0); HEMATOCRIT 41.1 % (36-52); HEMOGLOBIN 13.5 g/dL (12.0-18.0); LYMPHOCYTES # (AUTO) 4.4 K/uL (2.0-11.5); LYMPHOCYTES % (AUTO) 41.1 % (20.5-51.1); MEAN CORPUSCULAR HEMOGLOBIN 29 pg (27-31); MEAN CORPUSCULAR HGB CONC 33 g/dL (33-37); MEAN CORPUSCULAR VOLUME 87.6 fL (80-94); MONOCYTES # (AUTO) 0.9 K/uL (0.8-1.0); MONOCYTES % (AUTO) 8.6 % (1.7-9.3); NEUTROPHILS % (AUTO) 47.1 % (42.2-75.2); PLATELET COUNT (AUTO) 311 K/uL (140-450); RED BLOOD CELL COUNT(AUTO) 4.69 MIL/uL (4.20-6.10); RED CELL DISTRIBUTION WIDTH 14.7 % (11.6-13.7); WHITE BLOOD COUNT (AUTO) 10.6 K/uL (4.8-10.8)
[2018-09-22 03:32] LABS: ANION GAP 10.7 (8-16); CARBON DIOXIDE 27.3 mmol/L (21-32)
--- NOTE | 2018-09-22 03:35 | NUR ---
XRAY AT BEDSIDE.
[2018-09-22] MEDS ORDERED: ALBUTEROL SULFATE/IPRATROPIU 3 ML SOL IH ONE (03:50)
--- NOTE | 2018-09-22 04:08 | NUR ---
Respiratory Therapist at bedside for respiratory intervention.
--- NOTE | 2018-09-22 04:11 | NUR ---
RT AT BEDSIDE.
[2018-09-22 04:37] VITALS: BP 148/79
--- NOTE | 2018-09-22 04:37 | NUR ---
Patient discharged with v/s stable. Written and verbal after care instructions given and explained. Patient verbalized understanding. Ambulatory with steady gait. All questions addressed prior to discharge. Advised to follow up with PMD.
== END 2018-09-22 04:37 | disposition home or self-care (01) ==
LOC: MED 02:48
DX: R06.02 Shortness of breath (principal); M79.89 Other specified soft tissue disorders; E66.01 Morbid (severe) obesity due to excess calories; K21.9 Gastro-esophageal reflux disease without esophagitis; Z68.44 Body mass index [BMI] 60.0-69.9, adult; Z79.899 Other long term (current) drug therapy
CPT/HCPCS: 36415; 71045; 80048; 83880; 85025; 94640; 94760; 99284; J7620; Q0092

== ENCOUNTER 2018-10-23 23:06 | Emergency (ER) | payer OTHER ==
[~2018-10-23] VITALS: Ht 185.4 cm; Wt 213.2 kg
[2018-10-23 23:14] VITALS: BP 155/79
--- NOTE | 2018-10-23 23:17 | NUR ---
to lobby a/w bed ambulatory
--- NOTE | 2018-10-23 23:31 | NUR ---
33 YO MALE BIB SELF COMES TO ED FOR C/O HEADACHE. PT STATES HE FEELS WARM LIGHT HEADED. PT TEMP 99.2 BP 108/78 HR 118 RR 19. PT AAOX4 LUNGS EVEN UNLABORED, DENIES CP/SOB. ABD SOFT NON DISTENDED, PT VOIDING CLEAR YELLOW URINE. OPEN SORES TO LOWER PORTION OF ABDOMEN NON DRAINING. PT DENIES N/V/D. BED LOCKED IN LOWEST POSITION. SIDE RAILS UP X2. NO ACUTE DISTRESS @ THIS TIME. WILL CONTINUE TO OBSERVE. PMH: OPEN SKIN SORES DENIES ALLERGY
[2018-10-24] MEDS ORDERED: NACL 0.9% 1,000 ML IV ONE ×2 (00:15→02:20)
[2018-10-24] MEDS ORDERED: KETOROLAC 30 MG/ML VIAL IVP ONE (00:15)
[2018-10-24] MEDS ORDERED: ACETAMINOPHEN EXTRA STRENGTH 500 MG TAB PO ONE (00:35)
--- NOTE | 2018-10-24 01:31 | NUR ---
Dr. Cerna evaluating patient at bedside.
--- NOTE | 2018-10-24 01:33 | NUR ---
PT REFUSING TORADOL MEDICATION. PT STATES "IT [place]. I DON'T WANT IT." DR. KENNEDY MADE AWARE.
[2018-10-24] MEDS ORDERED: MORPHINE SULFATE 4 MG/ML SYR IVP ONE (01:40)
--- NOTE | 2018-10-24 02:00 | NUR ---
PT SITTING UP IN BED DENIES PAIN @ THIS TIME. PT DENIES FEVER/CHILLS. NO ACUTE DISTRESS NOTED.
[2018-10-24] MEDS ORDERED: cefTRIAXone 1,000 MG VIAL ONE (02:47)
[2018-10-24 04:15] VITALS: BP 120/85
--- NOTE | 2018-10-28 12:29 | NUR ---
Late entry. Confirmed with RN that these medications were completed at the times below. 0.9 NS IV bolus 1000 ml doen at 0230. 2nd 1000 ml done at 0330. Rocephin completed at 0310
== END 2018-10-24 04:01 | disposition home or self-care (01) ==
LOC: MED 23:06
DX: R50.9 Fever, unspecified (principal); R05 Cough; M79.10 Myalgia, unspecified site; K21.9 Gastro-esophageal reflux disease without esophagitis; Z90.49 Acquired absence of other specified parts of digestive tract; Z79.899 Other long term (current) drug therapy
CPT/HCPCS: 96365; 96375; 99283; J0696; J2270; J7060; J1885; J7030

== ENCOUNTER 2018-11-03 14:10 | Emergency (ER) | payer OTHER ==
[~2018-11-03] VITALS: Ht 185.4 cm; Wt 220.0 kg
[2018-11-03 14:17] VITALS: BP 157/95
--- NOTE | 2018-11-03 14:52 | NUR ---
PT BIB SELF C/O LOWER MID-LINE ABD PAIN X 3 DAYS WITH N/V/CHILLS/SWEATS. DENIES KNOWN FEVER. LBM TODAY, DIARHEA. PT STS " I HAD THE SAME THING LAST WEEK. I WAS SEEN HERE AND GIVEN IV. IT MADE ME FELT MUCH BETTER." UA DONE. PT DENIES ANY TRAUMA. GAIT-WNL, PAIN 4/10. ER MD TO [facility]. PINK/WARM/DRY; AAOX4, PERRL, LUNGS CLEAR BL, BREATHING UNLABORED; HR EVEN AND REGULAR,BS ACTIVE X4, NO TENDERNESS TO PALPATION. PT DENIES ANY FEVER, CP, SOB, OR COUGH AT THIS TIME; PT STATES 4/10 PAIN AT THIS TIME; VSS; PATIENT POSITIONED FOR COMFORT; HOB ELEVATED; BEDRAILS UP X2; BED DOWN.
[2018-11-03] MEDS ORDERED: DIPHENOXYLATE /ATROPINE 2.5 MG TAB PO ONE (14:55)
[2018-11-03] MEDS ORDERED: ONDANSETRON 4 MG ODT PO ONE (14:55)
[2018-11-03 15:06] VITALS: BP 150/82
--- NOTE | 2018-11-03 15:06 | NUR ---
PO MEDS GIVEN-NADR AT THIS TIME
--- NOTE | 2018-11-03 15:07 | NUR ---
Patient discharged with v/s stable. Written and verbal after care instructions given and explained. Patient alert, oriented and verbalized understanding of instructions. Ambulatory with steady gait. All questions addressed prior to discharge. ID band removed. Patient advised to follow up with PMD. Rx of Lomotil and Zofran given. Patient educated on indication of medication including possible reaction and side effects. Opportunity to ask questions provided and answered.
== END 2018-11-03 15:07 | disposition home or self-care (01) ==
LOC: MED 14:10
DX: R11.10 Vomiting, unspecified (principal); R19.7 Diarrhea, unspecified; L73.9 Follicular disorder, unspecified; E66.01 Morbid (severe) obesity due to excess calories; K21.9 Gastro-esophageal reflux disease without esophagitis; Z68.44 Body mass index [BMI] 60.0-69.9, adult; Z90.49 Acquired absence of other specified parts of digestive tract; Z79.899 Other long term (current) drug therapy
CPT/HCPCS: 81002; 99283; Q0162

== ENCOUNTER 2018-12-03 01:55 | Emergency (ER) | payer OTHER ==
[~2018-12-03] VITALS: Ht 185.4 cm; Wt 216.8 kg
[2018-12-03 02:01] VITALS: BP 128/57
--- NOTE | 2018-12-03 02:03 | NUR ---
TO LOBBY A/W BED AND XRAY AMBULATORY
--- NOTE | 2018-12-03 02:10 | NUR ---
PT C/O OF THROAT PAIN, COUGH, AND SOB X 2-3 WEEKS. PT HAS AUDIBLE WHEEZING UPON EXPIRATION. LUNG SOUNDS ARE BILATERALLY CLEAR. RESPIRATIONS EVEN AND LABORED. PT HAS NONPRODUCTIVE COUGH. PAIN LEVEL 9/10, "CHEST AREA FEELS LIKE ITS BURNING." NO FEVER OR RUNNY NOSE. PT DENIES ANY MED HX. SAFETY MEASURES IN PLACE. WAITING FOR ERMD TO EVALUATE PT.
--- NOTE | 2018-12-03 03:00 | NUR ---
PT IN HIGH FOWLERS POSITION. PT TOLERATED WELL. O2 SATURATION 98% ON RA.
--- NOTE | 2018-12-03 04:28 | NUR ---
ERMD AT BEDSIDE
[2018-12-03 04:50] VITALS: BP 128/57
--- NOTE | 2018-12-03 04:50 | NUR ---
Patient discharged with v/s stable. Written and verbal after care instructions given and explained. Patient alert, oriented and verbalized understanding of instructions. Ambulatory with steady gait. All questions addressed prior to discharge. ID band removed. Patient advised to follow up with PMD. Rx of BENADRYL, MOTRIN, PREDNISONE WAS given. Patient educated on indication of medication including possible reaction and side effects. Opportunity to ask questions provided and answered.
== END 2018-12-03 04:50 | disposition home or self-care (01) ==
LOC: MED 01:55
DX: R05 Cough (principal); R11.2 Nausea with vomiting, unspecified; R07.89 Other chest pain; K21.9 Gastro-esophageal reflux disease without esophagitis; Z90.49 Acquired absence of other specified parts of digestive tract; Z79.899 Other long term (current) drug therapy; F17.200 Nicotine dependence, unspecified, uncomplicated
CPT/HCPCS: 71045; 99283

== ENCOUNTER 2019-03-20 22:25 | Emergency (ER) | payer OTHER ==
[~2019-03-20] VITALS: Ht 185.4 cm; Wt 240.4 kg
[2019-03-20 22:30] VITALS: BP 110/78
--- NOTE | 2019-03-20 22:36 | NUR ---
PT AMBULATED TO BED #2
[2019-03-20] MEDS ORDERED: ONDANSETRON 4 MG ODT PO ONE (22:40)
--- NOTE | 2019-03-20 22:44 | NUR ---
33 Y/O M PRESENTS TO ER C/O N/V/D SINCE THIS MORNING. PER PT HE ATE [facility]ST NIGHT BUT TODAY BEFORE HE ATE [facility] HAS N/V/D. PT DENIES FEVER/CHILLS. PAIN LEVEL 4/10 TO RIGHT SIDE OF ABDOMEN RADIATING TO BACK. ABDOMEN IS ROUND, FIRM AND TENDER TO TOUCH. PT STATES "I HAVE MILD NAUSEA RIGHT NOW" PT HAD DIARRHEA X8 EPISODES AND VOMITING X4 EPISODES. ALLERGIES: NKA. MED HX: "INFECTIONS IN MY HEAD" SURGICAL HX: GALLBLADDER REMOVAL 2018. HOB ELEVATED, BED IN LOWEST POSITION, BED RAIL UP X1. WAITING FOR ERMD TO EVALUATE PT.
--- NOTE | 2019-03-20 23:09 | NUR ---
DR. KENNEDY EVALUATING PT AT PT BEDSIDE.
[2019-03-20] MEDS ORDERED: KETOROLAC 60 MG/2 ML VIAL IM ONE (23:15)
[2019-03-20 23:36] VITALS: BP 110/78
--- NOTE | 2019-03-20 23:37 | NUR ---
Patient discharged with v/s stable. Written and verbal after care instructions given and explained. Pt encouraged to eat a bland diet and avoid spicy and greasy foods. Patient alert, oriented and verbalized understanding of instructions. Ambulatory with steady gait. All questions addressed prior to discharge. ID band removed. Patient advised to follow up with PMD. Rx of IMODIUM A-D 2MG AND IBUPROFEN 800MG was given. Patient educated on indication of medication including possible reaction and side effects. Opportunity to ask questions provided and answered.
== END 2019-03-20 23:36 | disposition home or self-care (01) ==
LOC: MED 22:25
DX: R11.2 Nausea with vomiting, unspecified (principal); R19.7 Diarrhea, unspecified; R10.11 Right upper quadrant pain; Z90.49 Acquired absence of other specified parts of digestive tract; Z98.890 Other specified postprocedural states; Z79.891 Long term (current) use of opiate analgesic; Z79.2 Long term (current) use of antibiotics
CPT/HCPCS: 96372; 99283; J1885; Q0162

== ENCOUNTER 2019-06-21 20:03 | Emergency (ER) | payer OTHER ==
[~2019-06-21] VITALS: Ht 185.4 cm; Wt 220.0 kg
[2019-06-21 20:13] VITALS: BP 164/100
--- NOTE | 2019-06-21 20:57 | NUR ---
PATIENT CALLED TO BED , NO RESPONSE PATIENT LEFT WITHOUT BEING SEEN BY DR. BOYD. NO FURTHER CARE PROVIDED FOR PATIENT.
--- NOTE | 2019-06-21 20:57 | NUR ---
Val garcia in [facility] - 06/21/19 at 2059 by ABDI TO [facility] AMBULATORY
--- NOTE | 2019-06-21 21:03 | NUR ---
CALLED FOR THE SECOND TIME NO RESPONSE
--- NOTE | 2019-06-21 21:10 | NUR ---
CALLED FOR THE THIRD TIME NO RESPONSE
== END 2019-06-21 20:57 | disposition left against medical advice (07) ==
LOC: MED 20:03
DX: Z53.21 Procedure and treatment not carried out due to patient leaving prior to being seen by health care provider (principal)

== ENCOUNTER 2019-07-17 10:21 | Emergency (ER) | payer OTHER ==
[~2019-07-17] VITALS: Ht 185.4 cm; Wt 214.5 kg
[2019-07-17 10:29] VITALS: BP 164/101
--- NOTE | 2019-07-17 10:35 | NUR ---
PATIENT AMBULATED WITH STEADY GAIT TO BED 7
--- NOTE | 2019-07-17 10:51 | NUR ---
DR. BOYD AT BEDSIDE.
--- NOTE | 2019-07-17 10:56 | NUR ---
34 Y/M PRESENTS TO ED WITH COUGH X 2 WEEK, PT SEEN AT [place] AND DX WITH BRONCHITIS. PT FINISHED Z PACK TODAY AND 3 PREDNISONE PO. PT REPORTS STILL EXPERIENCING WEHEZING AND SOB. A&0 X 4, RR EVEN, R UPPER EXPIRATORY WHEEZES AUSCULTATED. DENIES CP. REPORTS URINARY FREQ X 1 WEEK, DENIES BURNING OR FLANK PAIN. KNDA PMH- HTN, ASTHMA "HEAD INFECTION", AND GALLSTONES
--- NOTE | 2019-07-17 10:58 | NUR ---
PT BEING WHEELED TO XR VIA WC.
[2019-07-17] MEDS: ALBUTEROL SULFATE/IPRATROPIU 3 ML SOL IH ONE (11:07)
--- NOTE | 2019-07-17 11:07 | NUR ---
ADMINISTERED [facility] THERAPY AND RESPIRATORY DRUGS ORDERED ENCOURAGED PATIENT FOR INTERMITTENT DEEP BREATHING DURING THERAPY
[2019-07-17] MEDS: predniSONE 20 MG TAB PO ONE (11:10)
--- NOTE | 2019-07-17 11:11 | NUR ---
RESPIRATORY AT BEDSIDE.
[2019-07-17 12:03] VITALS: BP 164/101
--- NOTE | 2019-07-17 12:04 | NUR ---
Note undone in EDM - 07/17/19 at 1205 by [facility] Patient discharged with v/s stable. Written and verbal after care instructions given and explained. Patient alert, oriented and verbalized understanding of instructions. Ambulatory with steady gait. All questions addressed prior to discharge. ID band removed. Patient advised to follow up with PMD. Rx of ALBUTEROL, PREDNISONE, TESSALON given. Patient educated on indication of medication including possible reaction and side effects. Opportunity to ask questions provided and answered.
== END 2019-07-17 12:05 | disposition home or self-care (01) ==
LOC: MED 10:21
DX: R06.2 Wheezing (principal); J45.909 Unspecified asthma, uncomplicated; I10 Essential (primary) hypertension; Z79.899 Other long term (current) drug therapy; Z98.890 Other specified postprocedural states
CPT/HCPCS: 71046; 94640; 99283; J7512; J7620; Q0092

== ENCOUNTER 2019-10-27 19:28 | Emergency (ER) | payer OTHER ==
[~2019-10-27] VITALS: Ht 185.4 cm; Wt 229.1 kg
[2019-10-27 19:39] VITALS: BP 147/97
--- NOTE | 2019-10-27 20:07 | NUR ---
pt assessed and evaluated by jose velasco. no nursing interventions needed at this time.
[2019-10-27 20:11] VITALS: BP 147/97
--- NOTE | 2019-10-27 20:11 | NUR ---
Patient discharged with v/s stable. Written and verbal after care instructions given and explained. Patient alert, oriented and verbalized understanding of instructions. Ambulatory with steady gait. All questions addressed prior to discharge. ID band removed. Patient advised to follow up with PMD. Rx of KEFLEX, AND BACTRIM given. Patient educated on indication of medication including possible reaction and side effects. Opportunity to ask questions provided and answered.
== END 2019-10-27 20:11 | disposition home or self-care (01) ==
LOC: MED 19:28
DX: L73.1 Pseudofolliculitis barbae (principal); J45.909 Unspecified asthma, uncomplicated; I10 Essential (primary) hypertension; Z79.899 Other long term (current) drug therapy
CPT/HCPCS: 99283

== ENCOUNTER 2020-08-19 00:48 | Emergency (ER) | payer OTHER ==
[~2020-08-19] VITALS: Ht 185.4 cm; Wt 231.3 kg
[2020-08-19 00:55] VITALS: BP 154/90
[2020-08-19] MEDS ORDERED: LIDOCAINE 2% 1000 MG/50 ML VIAL INJ ONE (02:20)
[2020-08-19] MEDS ORDERED: SULF-59 PO (02:58)
[2020-08-19] MEDS ORDERED: IBUP-2213 PO (02:58)
[2020-08-19 03:15] VITALS: BP 154/90
== END 2020-08-19 03:15 | disposition home or self-care (01) ==
LOC: MED 00:48
DX: L02.11 Cutaneous abscess of neck (principal); J45.909 Unspecified asthma, uncomplicated; I10 Essential (primary) hypertension
CPT/HCPCS: 10060; 99283; J2001

== ENCOUNTER 2020-09-14 07:16 | Day surgery (SDC) | payer OTHER, SELFPAY ==
[~2020-09-14] VITALS: Ht 185.4 cm; Wt 258.5 kg
[~2020-09-14 07:16] MED LIST changes: +IBUP-2213 PO; +SULF-59 PO
[2020-09-14] MEDS ORDERED: fentaNYL citrate 0.05 MG/ML VIAL ONE (13:38)
[2020-09-14] MEDS ORDERED: MIDAZOLAM 5 MG/5 ML VIAL ONE (13:38)
[2020-09-14] MEDS ORDERED: LIDOCAINE VISCOUS 2% 20 ML UDC ONE (13:39)
[2020-09-14] MEDS ORDERED: LIDOCAINE VISCOUS 2% 20 ML UDC PO ONE (14:25)
[2020-09-19] MEDS ORDERED: [UNRECOGNIZED DRUG - REMARK] (10:28)
[2020-09-19] MEDS ORDERED: AZIT500T1 PO (10:28)
[2020-09-19] MEDS ORDERED: FLUT1AER15 INH (10:28)
[2020-09-19] MEDS ORDERED: ALBU0.5S1 NEB (10:28)
[2020-09-19] MEDS ORDERED: PRED20TA5 PO (10:28)
[2020-09-19] MEDS ORDERED: Nebulizer Machine (10:28)
== END 2020-09-14 14:15 | disposition home or self-care (01) ==
LOC: MDS 07:16 → MMU 10:05 → MDS 14:15
PROVIDERS: ATTEND Internal Medicine Gastroenterology
DX: K22.70 Barrett's esophagus without dysplasia (principal); E66.01 Morbid (severe) obesity due to excess calories; F17.290 Nicotine dependence, other tobacco product, uncomplicated; Z90.49 Acquired absence of other specified parts of digestive tract; Z79.899 Other long term (current) drug therapy; Z20.828 Contact with and (suspected) exposure to other viral communicable diseases
CPT/HCPCS: 43239; 86677; J2250; J3010; U0003

== ENCOUNTER 2020-11-09 01:38 | Emergency (ER) | payer OTHER, SELFPAY ==
[~2020-11-09] VITALS: Ht 185.4 cm; Wt 249.0 kg
[~2020-11-09 01:38] MED LIST changes: -ACET-5629 PO; +ALBU0.5S1 NEB; +AZIT500T1 PO; -CEPH250C16 PO; +FLUT1AER15 INH; -HYDR-5092 PO; -IBUP-2213 PO; +Nebulizer Machine; +PRED20TA5 PO; -SULF-59 PO; +[UNRECOGNIZED DRUG - REMARK]
[2020-11-09 01:48] VITALS: BP 124/74
--- NOTE | 2020-11-09 01:48 | NUR ---
to bed ambulatory
--- NOTE | 2020-11-09 02:23 | NUR ---
PATIENT BIB SELF, COMPLAINING OF SOB, STATES HE HAS PAIN IN HIS LOWER LEGS BILATERAL FEELING TIGHTNESS 2-3 X 5 DAYS NOW, BILATERAL LOWER LEGS AND FEET ARE SWOLEN +2 NON PITTING. PATIENT WAS PUT ON 2 LPM NC. MEDHX: ASTHMA ALLERGY: NKA
--- NOTE | 2020-11-09 02:49 | NUR ---
ERMD at bedside for medical evaluation.
[2020-11-09] MEDS ORDERED: FUROSEMIDE 40 MG/4 ML VIAL IVP ONE (02:55)
[2020-11-09 03:12] LABS: BASOPHILS # (AUTO) 0.1 K/uL (0.00-0.22); BASOPHILS % (AUTO) 0.7 % (0.0-2.0); EOSINOPHILS # (AUTO) 0.3 K/uL (0-0.4); EOSINOPHILS % (AUTO) 2.4 % (0.0-4.0); HEMATOCRIT 38.6 % (36-52); HEMOGLOBIN 12.4 g/dL (12.0-18.0); LYMPHOCYTES # (AUTO) 3.4 K/uL (2.0-11.5); MEAN CORPUSCULAR HEMOGLOBIN 28 pg (27-31); MEAN CORPUSCULAR HGB CONC 32 g/dL (33-37); MEAN CORPUSCULAR VOLUME 86.4 fL (80-94); NEUTROPHILS # (AUTO) 6.2 K/uL (1.8-7.7); NEUTROPHILS % (AUTO) 56.9 % (42.2-75.2); PLATELET COUNT (AUTO) 311 K/uL (140-450); RED BLOOD CELL COUNT(AUTO) 4.47 MIL/uL (4.20-6.10); RED CELL DISTRIBUTION WIDTH 16.4 % (11.6-13.7); WHITE BLOOD COUNT (AUTO) 10.8 K/uL (4.8-10.8)
[2020-11-09 03:41] LABS: ALBUMIN 2.9 g/dL (3.4-5.0); ANION GAP 9.5 (8-16); CARBON DIOXIDE 29.5 mmol/L (21-32); TOTAL BILIRUBIN 0.3 mg/dL (0.0-1.0)
[2020-11-09] MEDS ORDERED: FURO-570 PO (05:05)
[2020-11-09] MEDS ORDERED: [UNRECOGNIZED DRUG - CODE] MC (05:05)
[2020-11-09] MEDS ORDERED: ALBU2.5V IH (05:05)
[2020-11-09 05:23] VITALS: BP 140/72
--- NOTE | 2020-11-09 05:23 | NUR ---
Patient discharged with v/s stable. Written and verbal after care instructions given and explained. Patient alert, oriented and verbalized understanding of instructions. Ambulatory with steady gait. All questions addressed prior to discharge. ID band removed. Patient advised to follow up with PMD. Rx of ALBUTEROL INH, FUROSEMIDE BY MOUTH given. Patient educated on indication of medication including possible reaction and side effects. Opportunity to ask questions provided and answered.
== END 2020-11-09 05:23 | disposition home or self-care (01) ==
LOC: MED 01:38
DX: J45.909 Unspecified asthma, uncomplicated (principal); I50.9 Heart failure, unspecified; R60.0 Localized edema; Z79.899 Other long term (current) drug therapy
CPT/HCPCS: 36415; 71045; 80053; 83880; 84484; 85025; 93005; 96374; 99285; J1940

== ENCOUNTER 2020-12-17 02:00 | Emergency (ER) | payer OTHER ==
[~2020-12-17] VITALS: Ht 188 cm; Wt 254.9 kg
[~2020-12-17 02:00] MED LIST changes: +ALBU2.5V IH; +FURO-570 PO; +[UNRECOGNIZED DRUG - CODE] MC
[2020-12-17 02:05] VITALS: BP 161/90
--- NOTE | 2020-12-17 02:07 | NUR ---
triaged and waiting in ER lobby.
--- NOTE | 2020-12-17 02:32 | NUR ---
ambulatory to bed 7
--- NOTE | 2020-12-17 02:33 | NUR ---
patient complains of left neck abscess x3 days ago. patient denies taking any pain medication. pain is at a 10/10 throbbing, burning, and shooting pain that radiates to the head and left shoulder. patient reports being here 1-2 months ago for the same thing and seems to have come back again. pmh: asthma, chf nka
[2020-12-17] MEDS ORDERED: SULFAMETH/TRIMETH 400/80MG 1 TAB PO ONE (03:05)
[2020-12-17] MEDS ORDERED: LIDOCAINE MPF 1% 5 ML ONE (03:05)
[2020-12-17] MEDS ORDERED: LIDOCAINE MPF 1% 10 MG/ML VIAL INJ ONE (03:05)
[2020-12-17] MEDS ORDERED: SULF-59 PO (03:13)
[2020-12-17] MEDS ORDERED: IBUP-2218 PO (03:13)
[2020-12-17] MEDS ORDERED: IBUPROFEN 800 MG TAB PO ONE (03:15)
--- NOTE | 2020-12-17 03:25 | NUR ---
I&D Procedure done by Dr. Fowler. scant amt of bleeding noted. Wound packed with curad. DSD applied. Pt tolerated procedure. Wound care discussed w/ patient.
[2020-12-17 03:48] VITALS: BP 148/83
--- NOTE | 2020-12-17 03:48 | NUR ---
Patient discharged with v/s stable. Written and verbal after care instructions given and explained. Patient alert, oriented and verbalized understanding of instructions. Ambulatory with steady gait. All questions addressed prior to discharge. ID band removed. Patient advised to follow up with PMD. Rx of ibuprofen and bactrim Ds tablet given. Patient educated on indication of medication including possible reaction and side effects. Opportunity to ask questions provided and answered.
== END 2020-12-17 03:48 | disposition home or self-care (01) ==
LOC: MED 02:00
DX: L02.11 Cutaneous abscess of neck (principal); J45.909 Unspecified asthma, uncomplicated; I50.9 Heart failure, unspecified; Z79.899 Other long term (current) drug therapy
CPT/HCPCS: 10060; 87070; 87075; 99283; J2001

== ENCOUNTER 2020-12-19 13:23 | Emergency (ER) | payer OTHER ==
[~2020-12-19] VITALS: Ht 188 cm; Wt 265.4 kg
[~2020-12-19 13:23] MED LIST changes: +IBUP-2218 PO; +SULF-59 PO
[2020-12-19 13:42] VITALS: BP 160/82
--- NOTE | 2020-12-19 14:18 | NUR ---
NO NURSING CARE RENDERED. PT DISCHARGED IN ER LOBBY.
== END 2020-12-19 14:18 | disposition home or self-care (01) ==
LOC: MED 13:23
DX: L02.11 Cutaneous abscess of neck (principal); J45.909 Unspecified asthma, uncomplicated; I50.9 Heart failure, unspecified; Z79.899 Other long term (current) drug therapy
CPT/HCPCS: 99282

== ENCOUNTER 2021-07-02 08:38 | Emergency (ER) | payer OTHER, SELFPAY ==
[~2021-07-02] VITALS: Ht 185.4 cm; Wt 272.2 kg
[2021-07-02 08:47] VITALS: BP 180/110
--- NOTE | 2021-07-02 08:56 | NUR ---
TENT1
--- NOTE | 2021-07-02 09:00 | NUR ---
PT AMB TO BED 5.
--- NOTE | 2021-07-02 09:12 | NUR ---
XRAY AT PATIENT BEDSIDE
[2021-07-02] MEDS ORDERED: ALBUTEROL 0.083% 2.5 MG/3 ML NEBU INH ONE (09:15)
[2021-07-02] MEDS ORDERED: IPRATROPIUM 0.02% 0.5 MG/2.5 ML NEBU INH ONE (09:15)
[2021-07-02] MEDS ORDERED: prednisoLONE 15 MG/5 ML UDC PO ONE (09:15)
--- NOTE | 2021-07-02 09:23 | NUR ---
[facility] THERAPY AND RESPIRATORY DRUGS GIVEN ORDERED ENCOURAGED PATIENT FOR INTERMITTENT DEEP BREATHING DURING THERAPY
--- NOTE | 2021-07-02 09:41 | NUR ---
LAB AT PATIENT BEDSIDE
--- NOTE | 2021-07-02 09:59 | NUR ---
36/M PRESENTS TO ED WITH C/O COUGH, WHEEZING AND INTERMITTENT CHEST PAIN X9 DAYS. STATES CHEST PAIN IS 2/10 AND WORSENS WITH COUGH, PATIENT HAS HX OF ASTHMA AND STATES HE HAS NOT FOUND RELIEF WITH USE OF HIS INHALERS. PATIENTS LEGS APPEAR SWOLLEN BILATERALLY, STATES THEY ARE MORE SWOLLEN THAN NORMAL. PATIENT DENIES FEVERS, CHILLS, VOMITING OR RECENT SICK CONTACTS.
[2021-07-02 10:08] LABS: BASOPHILS # (AUTO) 0.1 K/uL (0.00-0.22); BASOPHILS % (AUTO) 0.4 % (0.0-2.0); EOSINOPHILS # (AUTO) 0.2 K/uL (0-0.4); EOSINOPHILS % (AUTO) 1.4 % (0.0-4.0); HEMATOCRIT 37.4 % (36-52); HEMOGLOBIN 11.8 g/dL (12.0-18.0); LYMPHOCYTES # (AUTO) 3.9 K/uL (2.0-11.5); LYMPHOCYTES % (AUTO) 30.7 % (20.5-51.1); MEAN CORPUSCULAR HEMOGLOBIN 26 pg (27-31); MEAN CORPUSCULAR HGB CONC 32 g/dL (33-37); MEAN CORPUSCULAR VOLUME 82.5 fL (80-94); NEUTROPHILS # (AUTO) 7.6 K/uL (1.8-7.7); NEUTROPHILS % (AUTO) 59.5 % (42.2-75.2); PLATELET COUNT (AUTO) 360 K/uL (140-450); RED BLOOD CELL COUNT(AUTO) 4.53 MIL/uL (4.20-6.10); RED CELL DISTRIBUTION WIDTH 17.2 % (11.6-13.7); WHITE BLOOD COUNT (AUTO) 12.9 K/uL (4.8-10.8)
--- NOTE | 2021-07-02 10:53 | NUR ---
PATIENT SITTING IN BED, PROVIDED WITH ICE CHIPS PER PATIENT REQUEST. ALL PATIENT NEEDS MET AT THIS TIME. WILL CONTINUE TO MONITOR
[2021-07-02 11:55] LABS: ALBUMIN 2.7 g/dL (3.4-5.0); ANION GAP 12.3 (8-16); CARBON DIOXIDE 28.7 mmol/L (21-32); CREATININE 0.8 mg/dL (0.6-1.3); TOTAL BILIRUBIN 0.2 mg/dL (0.0-1.0)
--- NOTE | 2021-07-02 12:14 | NUR ---
DR. ROB SPEAKING TO PATIENT AT BEDSIDE.
[2021-07-02] MEDS ORDERED: PRED20TA5 PO (12:16)
[2021-07-02 12:35] VITALS: BP 146/94
--- NOTE | 2021-07-02 12:35 | NUR ---
Patient discharged with v/s stable. Written and verbal after care instructions ABOUT ASTHMA given and explained. Patient alert, oriented and verbalized understanding of instructions. Ambulatory with steady gait. All questions addressed prior to discharge. ID band removed. Patient advised to follow up with PMD. Rx of PREDNISONE given. Patient educated on indication of medication including possible reaction and side effects. Opportunity to ask questions provided and answered.
== END 2021-07-02 12:35 | disposition home or self-care (01) ==
LOC: MED 08:38
DX: J45.901 Unspecified asthma with (acute) exacerbation (principal); E66.01 Morbid (severe) obesity due to excess calories; J45.909 Unspecified asthma, uncomplicated; I50.9 Heart failure, unspecified; Z20.822 Contact with and (suspected) exposure to COVID-19
CPT/HCPCS: 36415; 71045; 80053; 83880; 84484; 85025; 87426; 93005; 94640; 99285; J7510; J7613; J7644; Q0092

== ENCOUNTER 2021-07-07 21:52 | Emergency (ER) | payer OTHER, SELFPAY ==
[~2021-07-07] VITALS: Ht 185.4 cm; Wt 272.2 kg
[2021-07-07 21:55] VITALS: BP 146/89
--- NOTE | 2021-07-07 21:58 | NUR ---
TO LOBBY A/W BED AMBULATORY
--- NOTE | 2021-07-07 22:54 | NUR ---
36 YO/M BIB SELF W C/O COUGH, SOB AND BL ARM/LEG SWELLING X1 WEEK WORSENING TODAY + CHEST PAIN 7/10 HEAVY/PRESSURE LIKE INTERMITENT X6 HOURS OCCURING WHEN COUGHING. PT REPORTS W FIRST EPISODE OF CHEST PAIN ALSO WENT PALE. PT 93-96% ON RA LABORED, PT ON 2L O2 AT HOME PRN. PT ALSO C/O BL EXTREMITIES PAIN D/T THE SWELLING. PT DENIES ANY FEVRES/CHILLS, N/V/D. PT SITTING IN BED LOCKED IN LOWEST POSITION, PLACED ON REMELT SUGAR BOILER. ERMD AT BEDSIDE ASSESSING PT. PMH:ASTHMA, HTN ALLERGIES: DENIES
[2021-07-07 23:24] LABS: BASOPHILS # (AUTO) 0.1 K/uL (0.00-0.22); BASOPHILS % (AUTO) 0.5 % (0.0-2.0); EOSINOPHILS # (AUTO) 0.2 K/uL (0-0.4); EOSINOPHILS % (AUTO) 1.5 % (0.0-4.0); HEMATOCRIT 36.9 % (36-52); HEMOGLOBIN 11.9 g/dL (12.0-18.0); LYMPHOCYTES # (AUTO) 3.2 K/uL (2.0-11.5); LYMPHOCYTES % (AUTO) 27.1 % (20.5-51.1); MEAN CORPUSCULAR HEMOGLOBIN 26 pg (27-31); MEAN CORPUSCULAR HGB CONC 32 g/dL (33-37); MEAN CORPUSCULAR VOLUME 81.7 fL (80-94); MONOCYTES % (AUTO) 8.7 % (1.7-9.3); NEUTROPHILS # (AUTO) 7.3 K/uL (1.8-7.7); NEUTROPHILS % (AUTO) 62.2 % (42.2-75.2); PLATELET COUNT (AUTO) 370 K/uL (140-450); RED BLOOD CELL COUNT(AUTO) 4.52 MIL/uL (4.20-6.10); RED CELL DISTRIBUTION WIDTH 17.1 % (11.6-13.7); WHITE BLOOD COUNT (AUTO) 11.7 K/uL (4.8-10.8)
--- NOTE | 2021-07-07 23:37 | NUR ---
PT O2 SAT 88%, PLACED ON 2L NC. O2 SAT NOW AT 94%.
[2021-07-07] MEDS ORDERED: BENZONATATE 100 MG CAPLF PO ONE (23:40)
--- NOTE | 2021-07-07 23:45 | NUR ---
PT C/O OF COUGH IRRITATING CHEST, WANT SOMETHING FOR THE CHEST PAIN. ERMD MADE AWARE.
[2021-07-07 23:51] LABS: ALBUMIN 2.9 g/dL (3.4-5.0); ANION GAP 9.2 (8-16); CARBON DIOXIDE 31.8 mmol/L (21-32); CREATININE 0.9 mg/dL (0.6-1.3); TOTAL BILIRUBIN 0.2 mg/dL (0.0-1.0)
--- NOTE | 2021-07-07 23:59 | NUR ---
PT WANTS MEDICATION FOR BL EXTREMITIES PAIN. ERMD MADE AWARE.
--- NOTE | 2021-07-08 01:44 | NUR ---
PT REPORTS COUGH AND CHEST PAIN IMPROVEMENT.
[2021-07-08] MEDS ORDERED: FURO-570 PO (03:53)
[2021-07-08 04:06] VITALS: BP 141/88
--- NOTE | 2021-07-08 04:06 | NUR ---
Patient discharged with v/s stable. Written and verbal after care instructions given and explained. Patient alert, oriented and verbalized understanding of instructions. Ambulatory with steady gait. All questions addressed prior to discharge. ID band removed. Patient advised to follow up with PMD. Rx of LASIX given. Patient educated on indication of medication including possible reaction and side effects. Opportunity to ask questions provided and answered.
== END 2021-07-08 04:06 | disposition home or self-care (01) ==
LOC: MED 21:52
DX: R07.89 Other chest pain (principal); R06.02 Shortness of breath; J45.909 Unspecified asthma, uncomplicated; I50.9 Heart failure, unspecified; Z79.899 Other long term (current) drug therapy
CPT/HCPCS: 36415; 71045; 80053; 83880; 84484; 85025; 93005; 99285; Q0092

== ENCOUNTER 2022-01-23 01:09 | Emergency (ER) | payer OTHER ==
[~2022-01-23] VITALS: Ht 188 cm; Wt 267.2 kg
[~2022-01-23 01:09] MED LIST changes: +ASCO-786 PO; -AZIT500T1 PO; +FLUT1BLS10 IH; +HYDR2TAB6 PO; -IBUP-2218 PO; +MULT-2247 PO; +NIFE60TE5 PO; -PRED20TA5 PO; -SULF-59 PO; +ZINC220C9 PO; -[UNRECOGNIZED DRUG - CODE] MC
[2022-01-23 01:13] VITALS: BP 157/94
--- NOTE | 2022-01-23 01:16 | NUR ---
Patient ambulated to bed 6.
[2022-01-23] MEDS ORDERED: KETOROLAC 30 MG/ML VIAL IVP ONE (01:30)
[2022-01-23] MEDS ORDERED: NACL 0.9% 1,000 ML IV SCH (01:30)
[2022-01-23 01:42] LABS: EOSINOPHILS # (AUTO) 0.4 K/uL (0-0.4); HEMATOCRIT 35.5 % (36-52); HEMOGLOBIN 11.3 g/dL (12.0-18.0); LYMPHOCYTES # (AUTO) 2.4 K/uL (2.0-11.5); LYMPHOCYTES % (AUTO) 21.7 % (20.5-51.1); MEAN CORPUSCULAR HEMOGLOBIN 26 pg (27-31); MEAN CORPUSCULAR HGB CONC 32 g/dL (33-37); MEAN CORPUSCULAR VOLUME 80.2 fL (80-94); MONOCYTES # (AUTO) 4.7 K/uL (0.8-1.0); MONOCYTES % (AUTO) 42.9 % (1.7-9.3); NEUTROPHILS # (AUTO) 3.4 K/uL (1.8-7.7); NEUTROPHILS % (AUTO) 31.4 % (42.2-75.2); PLATELET COUNT (AUTO) 421 K/uL (140-450); RED BLOOD CELL COUNT(AUTO) 4.42 MIL/uL (4.20-6.10); RED CELL DISTRIBUTION WIDTH 16.9 % (11.6-13.7); WHITE BLOOD COUNT (AUTO) 10.9 K/uL (4.8-10.8)
--- NOTE | 2022-01-23 02:03 | NUR ---
ULTRASOUND AT BEDSIDE.
[2022-01-23 02:05] LABS: ALBUMIN 3.2 g/dL (3.4-5.0); ANION GAP 10.3 (8-16); CARBON DIOXIDE 30.9 mmol/L (21-32); CREATININE 1.2 mg/dL (0.6-1.3); POTASSIUM 4.2 mmol/L (3.5-5.1); TOTAL BILIRUBIN 0.3 mg/dL (0.0-1.0)
--- NOTE | 2022-01-23 02:06 | NUR ---
PT REFUSED TORADOL FOR PAIN MEDICATION
--- NOTE | 2022-01-23 02:33 | NUR ---
36YR OLD MALE BIB SELF C/O ABD /FLANK PAIN. PT WAS SEEN YESTERDAY AT [facility] FOR SAME C/O WITH DX OF KIDNEY STONE. PAIN LEVEL 8/10. PT REFUSED PAIN MEDICATION . A&OX4 RESP EVEN AND UNLABORED. HOB ELEVATED. BED AT LOWEST LEVEL. NKDA CHF (QUESTIONABLE) OBESITY HTN
--- NOTE | 2022-01-23 02:38 | NUR ---
EXPLAINED TO PATIENT THAT A URINE SAMPLE WAS NEEDED. PATIENT STATED HE COULDNT URINATE. WILL OFFER URINAL AT BEDSIDE.
[2022-01-23] MEDS ORDERED: IBUP-1878 PO (02:48)
[2022-01-23] MEDS ORDERED: HYDROcodone/APAP 5/325 MG 1 TAB TAB PO ONE (02:55)
[2022-01-23 03:05] VITALS: BP 183/101
--- NOTE | 2022-01-23 03:05 | NUR ---
Patient discharged with v/s stable. Written and verbal after care instructions given and explained. Patient alert, oriented and verbalized understanding of instructions. Ambulatory with steady gait. All questions addressed prior to discharge. ID band removed. Patient advised to follow up with PMD. Rx of IBUPROFEN given.
--- NOTE | 2022-01-23 03:19 | NUR ---
The patient's care was reviewed and supervised by Meli Echevarria RN, RN.
== END 2022-01-23 03:05 | disposition home or self-care (01) ==
LOC: MED 01:09
DX: R10.9 Unspecified abdominal pain (principal); J45.909 Unspecified asthma, uncomplicated; I11.0 Hypertensive heart disease with heart failure; I50.9 Heart failure, unspecified; Z79.899 Other long term (current) drug therapy; Z87.442 Personal history of urinary calculi
CPT/HCPCS: 36415; 76770; 80053; 85025; 96360; 99284; J7030; Q0092; J1885

== ENCOUNTER 2022-06-07 23:28 | Observation (INO) | payer OTHER ==
[~2022-06-07] VITALS: Ht 188 cm; Wt 263.1 kg
[~2022-06-07 23:28] MED LIST changes: +IBUP-1878 PO
[2022-06-07 23:35] VITALS: BP 144/86
--- NOTE | 2022-06-07 23:38 | NUR ---
TO BED AMBULATORY
--- NOTE | 2022-06-07 23:44 | NUR ---
DR ALFRED AT BEDSIDE FOR EXAM
--- NOTE | 2022-06-07 23:47 | NUR ---
RECEIVED IN BED 10 WITH C/O SOB FOR 4 DAYS, CHEST PAIN , NUMBNESS, NECK, LEFT LEG PAIN STARTED TODAY,
[2022-06-07] MEDS ORDERED: ASPIRIN 325 MG TAB PO ONE (23:50)
[2022-06-07] MEDS ORDERED: MORPHINE SULFATE 4 MG/ML SYR IVP ONE (23:50)
[2022-06-07] MEDS ORDERED: NITROGLYCERIN 2% 1 GM PKT TP ONE (23:50)
[2022-06-07] MEDS ORDERED: FUROSEMIDE 40 MG/4 ML VIAL IVP ONE (23:50)
[2022-06-08 00:36] LABS: BASOPHILS # (AUTO) 0.1 K/uL (0.00-0.22); EOSINOPHILS # (AUTO) 0.2 K/uL (0-0.4); EOSINOPHILS % (AUTO) 2.1 % (0.0-4.0); HEMATOCRIT 34.1 % (36-52); HEMOGLOBIN 11.2 g/dL (12.0-18.0); LYMPHOCYTES # (AUTO) 2.7 K/uL (2.0-11.5); LYMPHOCYTES % (AUTO) 24.8 % (20.5-51.1); MEAN CORPUSCULAR HEMOGLOBIN 26 pg (27-31); MEAN CORPUSCULAR HGB CONC 33 g/dL (33-37); MEAN CORPUSCULAR VOLUME 79.1 fL (80-94); MONOCYTES # (AUTO) 0.9 K/uL (0.8-1.0); MONOCYTES % (AUTO) 8.2 % (1.7-9.3); NEUTROPHILS # (AUTO) 6.9 K/uL (1.8-7.7); NEUTROPHILS % (AUTO) 63.9 % (42.2-75.2); PLATELET COUNT (AUTO) 388 K/uL (140-450); RED BLOOD CELL COUNT(AUTO) 4.31 MIL/uL (4.20-6.10); WHITE BLOOD COUNT (AUTO) 10.9 K/uL (4.8-10.8)
[2022-06-08 00:58] LABS: ALBUMIN 3.5 g/dL (3.4-5.0); ANION GAP 12.8 (8-16); CARBON DIOXIDE 28.8 mmol/L (21-32); CREATININE 1.4 mg/dL (0.6-1.3); POTASSIUM 3.6 mmol/L (3.5-5.1); TOTAL BILIRUBIN 0.2 mg/dL (0.0-1.0)
--- NOTE | 2022-06-08 01:30 | NUR ---
AMBULATED TO BR THEN BACK TO BED
[2022-06-08] MEDS ORDERED: ALBU0.0912 IH (01:55)
[2022-06-08] MEDS ORDERED: MAG SULF 2000 MG/WATER PREMIX 50 ML IV PRN (02:55)
[2022-06-08] MEDS ORDERED: KCL 20 MEQ/WATER INJ PREMIX 200 ML IV PRN (02:55)
[2022-06-08] MEDS ORDERED: MAGNESIUM OXIDE 400 MG TAB PO PRN (02:55)
[2022-06-08] MEDS ORDERED: POTASSIUM CHLORIDE 10 MEQ TABER PO PRN (02:55)
[2022-06-08] MEDS ORDERED: MORPHINE SULFATE 4 MG/ML SYR IVP ONE (03:40)
[2022-06-08] MEDS ORDERED: MORPHINE SULFATE 4 MG/ML SYR ONE (03:42)
--- NOTE | 2022-06-08 04:00 | NUR ---
RESTING IN BED WITH SNORING RESPIRATIONS
--- NOTE | 2022-06-08 06:31 | NUR ---
AM LABS DRAWN THEN AMBULATED TO BR WITH STEADY GATE
[2022-06-08] MEDS ORDERED: ASPIRIN 81 MG TAB.CHEW PO SCH (09:00)
[2022-06-08] MEDS ORDERED: ATORVASTATIN 20 MG TAB PO SCH (09:00)
--- NOTE | 2022-06-08 09:03 | NUR ---
PATIENT HAS BEEN SCREENED AND CATEGORIZED LOW NUTRITION RISK. PATIENT WILL BE SEEN WITHIN 7 DAYS OF ADMISSION. 06/08/22-06/15/[address]
[2022-06-08] MEDS ORDERED: MORPHINE SULFATE 2 MG/ML SYR IVP PRN (09:55)
--- NOTE | 2022-06-08 10:00 | NUR ---
Pt c/o chest pain, diffuse, 8/10. Dr Valdez contacted, morphine sulfate 2 prn severe pain 7-10, q hours
--- NOTE | 2022-06-08 10:40 | NUR ---
medicated for chest pain 01/[address] garcia
--- NOTE | 2022-06-08 11:45 | NUR ---
getting echo at this time
[2022-06-08] MEDS ORDERED: ALBUTEROL 0.083% 2.5 MG/3 ML NEBU INH PRN (13:25)
[2022-06-08] MEDS ORDERED: ALBUTEROL HFA MDI 90 MCG/ACTUATION 8 GM INH SCH (13:25)
[2022-06-08] MEDS ORDERED: FURO-570 PO (13:40)
[2022-06-08] MEDS ORDERED: AMOX-1230 PO (13:40)
[2022-06-08 14:07] VITALS: BP 138/92
--- NOTE | 2022-06-08 14:20 | NUR ---
IV removed, catheter intact and site benign. Applied folded 4x4 gauze and tape to stop bleeding.
[2022-06-08 14:21] VITALS: BP 138/92
[2022-06-08] MEDS ORDERED: FUROSEMIDE 40 MG TAB PO SCH (21:00)
[2022-06-09] MEDS ORDERED: NIFEdipine 60 MG TABER PO SCH (09:00)
== END 2022-06-08 14:22 | disposition home or self-care (01) ==
LOC: MED 23:28 → MTU 06-08 02:57
PROVIDERS: ADMIT Hospitalist; ATTEND Hospitalist
DX: D72.829 Elevated white blood cell count, unspecified (principal); Z20.822 Contact with and (suspected) exposure to COVID-19; N17.9 Acute kidney failure, unspecified; I20.9 Angina pectoris, unspecified; R07.89 Other chest pain; I11.0 Hypertensive heart disease with heart failure; I50.9 Heart failure, unspecified; J45.909 Unspecified asthma, uncomplicated; E66.01 Morbid (severe) obesity due to excess calories; Z79.899 Other long term (current) drug therapy
CPT/HCPCS: 36415; 71045; 80053; 83880; 84484; 85025; 87426; 93005; 96372; 96374; 96375; 96376; 99291; C8929; G0378; J1644; J1940; J2270

== ENCOUNTER 2022-08-18 00:50 | Inpatient (IN) | payer OTHER ==
[~2022-08-18] VITALS: Ht 188 cm; Wt 267.2 kg
[~2022-08-18 00:50] MED LIST changes: +ALBU0.0912 IH; +AMOX-1230 PO
[2022-08-18 00:55] VITALS: BP 139/97
--- NOTE | 2022-08-18 00:55 | NUR ---
c/o SOB x 2 days, right back pain radiating to right rib x 1 month. per pt pmhx sepsis, hypoxia, asthma. denies any allergies.
--- NOTE | 2022-08-18 00:59 | NUR ---
to bed 12
[2022-08-18] MEDS ORDERED: ALBUTEROL SULFATE/IPRATROPIU 3 ML SOL IH ONE (01:05)
--- NOTE | 2022-08-18 01:13 | NUR ---
Respiratory Therapist at bedside for respiratory intervention.
--- NOTE | 2022-08-18 01:18 | NUR ---
RT AT BEDSIDE
--- NOTE | 2022-08-18 01:21 | NUR ---
PT ON BEDSIDE CARDAIC MONITOR . SP02 99% 2L SKIN WARM AND DRY. RESP EVEN AND UNLABORED.
--- NOTE | 2022-08-18 02:15 | NUR ---
Pt c/o 03/03 right back and right rib pain. Dr. Siegel made aware and orders received.
--- NOTE | 2022-08-18 02:18 | NUR ---
Blood draw done and given to lab
[2022-08-18 02:33] LABS: BASOPHILS # (AUTO) 0.1 K/uL (0.00-0.22); BASOPHILS % (AUTO) 0.8 % (0.0-2.0); EOSINOPHILS # (AUTO) 0.3 K/uL (0-0.4); EOSINOPHILS % (AUTO) 2.5 % (0.0-4.0); HEMATOCRIT 33.5 % (36-52); HEMOGLOBIN 10.4 g/dL (12.0-18.0); LYMPHOCYTES # (AUTO) 2.5 K/uL (2.0-11.5); LYMPHOCYTES % (AUTO) 22.7 % (20.5-51.1); MEAN CORPUSCULAR HEMOGLOBIN 26 pg (27-31); MEAN CORPUSCULAR HGB CONC 31 g/dL (33-37); MEAN CORPUSCULAR VOLUME 82.5 fL (80-94); MONOCYTES # (AUTO) 0.8 K/uL (0.8-1.0); MONOCYTES % (AUTO) 7.6 % (1.7-9.3); NEUTROPHILS # (AUTO) 7.4 K/uL (1.8-7.7); NEUTROPHILS % (AUTO) 66.4 % (42.2-75.2); PLATELET COUNT (AUTO) 410 K/uL (140-450); RED BLOOD CELL COUNT(AUTO) 4.06 MIL/uL (4.20-6.10); RED CELL DISTRIBUTION WIDTH 17.2 % (11.6-13.7); WHITE BLOOD COUNT (AUTO) 11.1 K/uL (4.8-10.8)
[2022-08-18] MEDS ORDERED: MORPHINE SULFATE 4 MG/ML SYR IVP ONE ×2 (02:50→04:45)
[2022-08-18 02:56] LABS: ALBUMIN 2.8 g/dL (3.4-5.0); ANION GAP 10.5 (8-16); CARBON DIOXIDE 29.5 mmol/L (21-32); CREATININE 1.1 mg/dL (0.6-1.3); TOTAL BILIRUBIN 0.2 mg/dL (0.0-1.0)
--- NOTE | 2022-08-18 03:21 | NUR ---
Pt noted resting comfortably at this time no s/s discomfort.
--- NOTE | 2022-08-18 04:16 | NUR ---
PT FOR ADMISSION
--- NOTE | 2022-08-18 04:42 | NUR ---
Pt c/o right rib and back pain. Dr. Siegel made aware and order for pain medications received.
[2022-08-18] MEDS ORDERED: SPIR25TA PO (05:11)
[2022-08-18] MEDS ORDERED: FLUT1BLS10 IH (05:11)
[2022-08-18] MEDS ORDERED: FURO-570 PO (05:11)
[2022-08-18] MEDS ORDERED: DILT360C52 PO (05:11)
--- NOTE | 2022-08-18 05:56 | NUR ---
Pt noted resting at this time no s/s discomfort at this time.
--- NOTE | 2022-08-18 05:56 | NUR ---
PERSONAL BELONGINGS COMPLETED
[2022-08-18] MEDS ORDERED: ACETAMINOPHEN 325 MG TAB PO PRN (06:00)
[2022-08-18] MEDS ORDERED: ONDANSETRON 4 MG/2 ML VIAL IVP PRN (06:00)
[2022-08-18] MEDS ORDERED: ZOLPIDEM 5 MG TAB PO PRN (06:00)
[2022-08-18] MEDS ORDERED: METOCLOPRAMIDE 10 MG/2 ML INJ VIAL IVP PRN (06:00)
--- NOTE | 2022-08-18 07:59 | NUR ---
Patient will be admitted to care of Dr. Malcolm. Admited to tele. Will go to room 104 B. Belongings list completed. Report to Everette BERMUDEZ.
--- NOTE | 2022-08-18 08:13 | NUR ---
Admission of 37 year old male under the care of Doctor Ino with complaint of side pain. Diagnosis is COPD. Says he wants a shot for pain will try norco but says it does not work. Addendum: 08/18/22 at 0814 by Agency 03 LARA BERMUDEZ MD leidy Cotton
[2022-08-18 08:33] VITALS: BP 124/51
--- NOTE | 2022-08-18 09:10 | NUR ---
PATIENT HAS BEEN SCREENED AND CATEGORIZED HIGH NUTRITION RISK. PATIENT WILL BE SEEN WITHIN 1-2 DAYS OF ADMISSION. FNS REFERRAL RECEIVED FOR DYSPHAGIA ON 08/18/22. REVIEWED BY CATHI ELIZONDO RD
[2022-08-18] MEDS: methylPREDNISolone SS 40 MG/ML VIAL IVP SCH ×2 (09:39→21:00)
[2022-08-18] MEDS: FUROSEMIDE 20 MG/2 ML VIAL IVP SCH ×3 (09:39→17:16)
[2022-08-18] MEDS: ENOXAPARIN 40 MG/0.4 ML SYR SUBQ SCH (09:40)
[2022-08-18] MEDS: DOCUSATE SODIUM 100 MG GELCAP PO SCH (09:40)
[2022-08-18] MEDS: HYDROcodone/APAP 5/325 MG 1 TAB TAB PO PRN ×2 (10:22→17:17)
[2022-08-18] MEDS: AZITHROMYCIN 500 MG in DEXTROSE 5% 250 ML IV SCH (10:22)
[2022-08-18 14:01] VITALS: BP 122/72
[2022-08-18 17:50] VITALS: BP 126/72
[2022-08-18 20:00] VITALS: BP 146/91
[2022-08-18] MEDS: ALBUTEROL SULFATE/IPRATROPIU 3 ML SOL IH SCH (20:43)
--- NOTE | 2022-08-18 20:49 | NUR ---
PT IN NO DISTRESS, TREATMENT GIVEN, PT REQUESTING NOC BI-PAP STATES SETTINGS AT HOME IPAP 14 EPAP 8 RATE 22, 28%. WILL MAKE RN AWARE AND NOTIFY .
[2022-08-19] VITALS: BP 143/87
[2022-08-19] MEDS: ALBUTEROL SULFATE/IPRATROPIU 3 ML SOL IH SCH ×4 (00:02→20:43)
[2022-08-19 04:00] VITALS: BP 159/92
[2022-08-19 08:00] VITALS: BP 141/79
[2022-08-19] MEDS: DOCUSATE SODIUM 100 MG GELCAP PO SCH (09:12)
[2022-08-19] MEDS: FUROSEMIDE 20 MG/2 ML VIAL IVP SCH ×3 (09:12→19:10)
[2022-08-19] MEDS: methylPREDNISolone SS 40 MG/ML VIAL IVP SCH ×2 (09:12→21:00)
[2022-08-19] MEDS: ENOXAPARIN 40 MG/0.4 ML SYR SUBQ SCH (09:14)
[2022-08-19] MEDS: AZITHROMYCIN 500 MG in DEXTROSE 5% 250 ML IV SCH (10:00)
[2022-08-19 12:00] VITALS: BP 132/82
[2022-08-19 14:17] LABS: BASOPHILS % (AUTO) 0.3 % (0.0-2.0); EOSINOPHILS % (AUTO) 0.1 % (0.0-4.0); HEMATOCRIT 34.8 % (36-52); LYMPHOCYTES # (AUTO) 1.4 K/uL (2.0-11.5); LYMPHOCYTES % (AUTO) 11.1 % (20.5-51.1); MEAN CORPUSCULAR HEMOGLOBIN 26 pg (27-31); MEAN CORPUSCULAR HGB CONC 32 g/dL (33-37); MEAN CORPUSCULAR VOLUME 82.2 fL (80-94); MONOCYTES # (AUTO) 0.3 K/uL (0.8-1.0); MONOCYTES % (AUTO) 2.7 % (1.7-9.3); NEUTROPHILS % (AUTO) 85.8 % (42.2-75.2); PLATELET COUNT (AUTO) 424 K/uL (140-450); RED BLOOD CELL COUNT(AUTO) 4.23 MIL/uL (4.20-6.10); WHITE BLOOD COUNT (AUTO) 12.8 K/uL (4.8-10.8)
[2022-08-19 14:59] LABS: ANION GAP 11.2 (8-16); CREATININE 1.1 mg/dL (0.6-1.3); MAGNESIUM 1.9 mg/dL (1.8-2.4); POTASSIUM 4.2 mmol/L (3.5-5.1); TOTAL BILIRUBIN 0.2 mg/dL (0.0-1.0)
--- NOTE | 2022-08-19 15:50 | NUR ---
08/19/22 RD INITIAL ASSESSMENT COMPLETED PLEASE REFER TO NUTRITION ASSESSMENT UNDER CARE ACTIVITY FOR ESTIMATED NUTRITIONAL NEEDS. 1. CONTINUE CARDIAC DIET TOLERATED 2. MONITOR PO INTAKE AND NUTRITION RELATED LAB VALUES 3. RD TO FOLLOW-UP 7 DAYS, LOW RISK REVIEWED BY CATHI ELIZONDO RD
[2022-08-19 16:00] VITALS: BP 124/67
--- NOTE | 2022-08-19 17:36 | NUR ---
ATTEMPTED FOLLOW UP ABG ORDERED BY MD HESS. AFTER MULTIPLE ATTEMPTS PT STATED HE WAS IN PAIN AND REFUSED ANOTHER ATTEMPT. PT AWAKE AND ALERT. PT IS IN NO SIGNS OF RESPIRATORY DISTRESS. PT IS ON ROOM AIR SATING 95%. MD HESS NOTIFIED.
[2022-08-19] MEDS: HYDROcodone/APAP 5/325 MG 1 TAB TAB PO PRN ×2 (19:13→23:12)
--- NOTE | 2022-08-19 19:30 | NUR ---
NURSING NARRATIVE PM (OPENING) HAND-OFF REPORT RECEIVED FROM BAYRON BERMUDEZ FOLLOWED BY BEDSIDE ROUNDS. REPORTED:37 YO MORBIDLY OBESE MALE ADMITTED TO ER FROM WORK WITH SOB. DX: COPD X AND R FLANK PAIN ADMITTED TO [facility]. A/O X4. SR . RA WITH BIPAP AT [facility]. CONTINENT OF B/B. IV SITE INFILTRATED. ATTEMPTED STICK X1 BY DAY SHIFT. MEDICATED BY DAY SHIFT WITH NORCO R FLANK DISCOMFORT. PT RECEIVED SITTING UP IN CHAIR REQUESTING SHOWER. NOTED NO IV ACCESS. PLAN: MEDS SCHEDULED, ATTEMPT RESTART OF IV. MONITOR AND ASSIST NEEDED. SAFETY MEASURES IN PLACE. BED IN LOWEST POSITION AND WHEELS LOCKED. CALL LIGHT WITHIN EASY REACH. DAY SHIFT UNABLE TO GIVE LASIX TOWARD SHIFT END.
[2022-08-19 20:00] VITALS: BP 123/86
--- NOTE | 2022-08-19 22:05 | NUR ---
JOSEFINA CHARGE NURSE DENIA ASSESSED SITES AND UNABLE TO VISUALLY SEE OR MANUALLY PALPATE ADEQUATE SITE. PASSED ON TO AWILDA LOZA.
--- NOTE | 2022-08-19 22:30 | NUR ---
IV ACCESS ATTEMPT HOUSE SUPER ATTEMPTED TO START IV X2 STICKS TO NO AVAIL.
[2022-08-20] VITALS: BP 120/76
--- NOTE | 2022-08-20 00:12 | NUR ---
NORCO EFFECTIVE. SOUND DENIES PAIN. SLEEPING WELL.
[2022-08-20] MEDS: ALBUTEROL SULFATE/IPRATROPIU 3 ML SOL IH SCH ×2 (01:08→09:31)
[2022-08-20 04:00] VITALS: BP 126/82
--- NOTE | 2022-08-20 05:00 | NUR ---
PICC LINE CONSENT SIGNED.
--- NOTE | 2022-08-20 06:00 | NUR ---
BIPAP TOLERATED ALL NOC. TOLERATED WELL.
[2022-08-20] MEDS ORDERED: METO25TE2 PO (07:57)
[2022-08-20] MEDS ORDERED: CEFP200T20 PO (07:57)
[2022-08-20] MEDS ORDERED: AZIT500T8 PO (07:57)
[2022-08-20] MEDS ORDERED: PRED20TA5 PO (07:57)
--- NOTE | 2022-08-20 10:55 | NUR ---
Patient discharge to home with a copy of discharge instructions and all belongings.
--- NOTE | 2022-08-21 08:58 | NUR ---
CALLED DR ELIZONDO'S OFFICE LOCATED AT [address] [place] [address]. SPOKE WITH TRINY WHO INFORMED ME THAT PT HAD ALREADY MADE A FOLLOW UP APPOINTMENT FOR 09/08/2022 AT [id number].
== END 2022-08-20 10:50 | disposition home or self-care (01) | DRG 720 ==
LOC: MED 00:50 → MTU 06:03
PROVIDERS: ADMIT Internal Medicine; ATTEND Internal Medicine
PROC: 5A09357 Assistance with Respiratory Ventilation, Less than 24 Consecutive Hours, Continuous Positive Airway Pressure (ICD-10-PCS; principal; 2022-08-18)
PROC: 5A09357 Assistance with Respiratory Ventilation, Less than 24 Consecutive Hours, Continuous Positive Airway Pressure (ICD-10-PCS; 2022-08-19)
DX: A41.9 Sepsis, unspecified organism (principal); J96.01 Acute respiratory failure with hypoxia; I50.33 Acute on chronic diastolic (congestive) heart failure; E43 Unspecified severe protein-calorie malnutrition; J18.9 Pneumonia, unspecified organism; J44.0 Chronic obstructive pulmonary disease with (acute) lower respiratory infection; I11.0 Hypertensive heart disease with heart failure; J45.901 Unspecified asthma with (acute) exacerbation; J44.1 Chronic obstructive pulmonary disease with (acute) exacerbation; D64.9 Anemia, unspecified; E66.01 Morbid (severe) obesity due to excess calories; Z20.822 Contact with and (suspected) exposure to COVID-19; Z68.45 Body mass index [BMI] 70 or greater, adult; Z83.3 Family history of diabetes mellitus; Z82.49 Family history of ischemic heart disease and other diseases of the circulatory system; Z82.3 Family history of stroke; Z84.1 Family history of disorders of kidney and ureter; Z82.5 Family history of asthma and other chronic lower respiratory diseases; Z79.2 Long term (current) use of antibiotics; Z79.899 Other long term (current) drug therapy
CPT/HCPCS: 36415; 36600; 71045; 78582; 80053; 82803; 83605; 83735; 83880; 85025; 85379; 87040; 87081; 93970; 94640; 94660; 96374; 96375; 97163-GP; 99285; J0456; J0696; J1650; J1940; J2270; J2405; J2920; J7060; Q0092

== ENCOUNTER 2023-01-03 21:46 | Emergency (ER) | payer OTHER ==
[~2023-01-03] VITALS: Ht 188 cm; Wt 284.9 kg
[~2023-01-03 21:46] MED LIST changes: -ALBU0.0912 IH; -ALBU0.5S1 NEB; -ALBU2.5V IH; -AMOX-1230 PO; -ASCO-786 PO; +AZIT500T8 PO; +CEFP200T20 PO; -FLUT1AER15 INH; -HYDR2TAB6 PO; -IBUP-1878 PO; +METO25TE2 PO; -MULT-2247 PO; -NIFE60TE5 PO; -Nebulizer Machine; +PRED20TA5 PO; +SPIR25TA PO; -ZINC220C9 PO; -[UNRECOGNIZED DRUG - REMARK]
[2023-01-03 22:11] VITALS: BP 156/91; PULSE 110; RESP 20; TEMP 97.9; O2SAT 95
[2023-01-04 01:27] VITALS: BP 152/89; PULSE 85; RESP 22; O2SAT 99
[2023-01-04] MEDS ORDERED: ACETAMINOPHEN EXTRA STRENGTH 500 MG TAB PO ONE (01:35)
[2023-01-04] MEDS ORDERED: KETOROLAC 15 MG/ML VIAL IM ONE (01:35)
[2023-01-04] MEDS ORDERED: LIDOCAINE/EPI MPF 1%1:200000 30 ML VIAL INJ ONE (02:45)
[2023-01-04] MEDS ORDERED: SULF-58 PO (03:21)
== END 2023-01-04 03:45 | disposition home or self-care (01) ==
LOC: MED 21:46
DX: L02.11 Cutaneous abscess of neck (principal); J45.909 Unspecified asthma, uncomplicated; I50.9 Heart failure, unspecified; Z87.442 Personal history of urinary calculi; Z79.899 Other long term (current) drug therapy
CPT/HCPCS: 10060; 96372; 99283; J1885; 99284

== ENCOUNTER 2023-01-13 01:45 | Inpatient (IN) | payer OTHER ==
[~2023-01-13] VITALS: Ht 188 cm; Wt 267.2 kg
[~2023-01-13 01:45] MED LIST changes: +SULF-58 PO
[2023-01-13 02:00] VITALS: BP 127/96; PULSE 93; RESP 24; TEMP 96.5; O2SAT 96
[2023-01-13 04:25] VITALS: PULSE 83; PULSE 86; RESP 17; O2SAT 100; O2SAT 94
[2023-01-13] MEDS ORDERED: FUROSEMIDE 40 MG/4 ML VIAL IVP ONE (04:25)
[2023-01-13] MEDS ORDERED: ALBUTEROL SULFATE/IPRATROPIU 3 ML SOL IH ONE (04:25)
[2023-01-13 05:33] LABS: BASOPHILS # (AUTO) 0.1 K/uL (0.00-0.22); BASOPHILS % (AUTO) 0.6 % (0.0-2.0); EOSINOPHILS # (AUTO) 0.3 K/uL (0-0.4); EOSINOPHILS % (AUTO) 3.6 % (0.0-4.0); HEMATOCRIT 32.7 % (36-52); HEMOGLOBIN 10.5 g/dL (12.0-18.0); LYMPHOCYTES # (AUTO) 2.1 K/uL (2.0-11.5); LYMPHOCYTES % (AUTO) 23.1 % (20.5-51.1); MEAN CORPUSCULAR HEMOGLOBIN 26 pg (27-31); MEAN CORPUSCULAR HGB CONC 32 g/dL (33-37); MEAN CORPUSCULAR VOLUME 81.2 fL (80-94); MONOCYTES # (AUTO) 0.8 K/uL (0.8-1.0); MONOCYTES % (AUTO) 8.9 % (1.7-9.3); NEUTROPHILS # (AUTO) 5.8 K/uL (1.8-7.7); NEUTROPHILS % (AUTO) 63.8 % (42.2-75.2); PLATELET COUNT (AUTO) 365 K/uL (140-450); RED BLOOD CELL COUNT(AUTO) 4.02 MIL/uL (4.20-6.10); WHITE BLOOD COUNT (AUTO) 9.1 K/uL (4.8-10.8)
[2023-01-13 05:41] LABS: INR 0.99 (0.8-1.2); PARTIAL THROMBOPLASTIN TIME 31.5 secs (22-35.6); PROTHROMBIN TIME 10.4 secs (10.8-13.4)
[2023-01-13 05:50] LABS: ALBUMIN 2.7 g/dL (3.4-5.0); ANION GAP 10.3 (8-16); CALCIUM 8.3 mg/dL (8.5-10.1); CARBON DIOXIDE 28.8 mmol/L (21-32); CREATININE 1.1 mg/dL (0.6-1.3); POTASSIUM 4.1 mmol/L (3.5-5.1); TOTAL BILIRUBIN 0.3 mg/dL (0.0-1.0); TOTAL PROTEIN, SERUM 7.9 g/dL (6.4-8.2)
[2023-01-13 05:55] LABS: CREATINE KINASE, TOTAL 98 U/L (39-308)
[2023-01-13 06:13] LABS: APPEARANCE,URINE CLEAR (CLEAR); BILIRUBIN,URINE NEGATIVE (NEGATIVE); BLOOD, URINE NEGATIVE (NEGATIVE); COLOR,URINE YELLOW (YELLOW); LEUKOCYTE ESTERASE ,URINE NEGATIVE (NEGATIVE); NITRITE, URINE NEGATIVE (NEGATIVE); PROTEIN,URINE NEGATIVE (NEGATIVE); UGLUCOSE NEGATIVE (NEGATIVE); UROBILINOGEN,URINE 0.2 EU/dL (0.2 - 1)
[2023-01-13] MEDS ORDERED: ALBU0.5S1 NEB (06:41)
[2023-01-13] MEDS ORDERED: HYDR-118 PO (06:41)
[2023-01-13] MEDS ORDERED: DILT360C52 PO (06:41)
[2023-01-13] MEDS ORDERED: LORazepam 2 MG/ML VIAL IVP PRN (07:15)
[2023-01-13] MEDS ORDERED: ACETAMINOPHEN 325 MG TAB PO PRN (07:15)
[2023-01-13] MEDS ORDERED: ONDANSETRON 4 MG/2 ML VIAL IVP PRN (07:15)
[2023-01-13] MEDS ORDERED: MORPHINE SULFATE 2 MG/ML SYR IVP PRN (07:15)
[2023-01-13 07:36] VITALS: PULSE 88; O2SAT 97
[2023-01-13] MEDS ORDERED: FUROSEMIDE 40 MG/4 ML VIAL IVP SCH (09:00)
[2023-01-13 12:30] VITALS: O2SAT 95
[2023-01-13 15:17] VITALS: BP 145/80; PULSE 88; RESP 20; TEMP 98.4
[2023-01-14] MEDS ORDERED: [UNRECOGNIZED DRUG - OTHER] PO SCH (09:00)
[2023-01-14] MEDS ORDERED: METOPROLOL SUCCINATE 50 MG TABER PO SCH (09:00)
[2023-01-14] MEDS ORDERED: DILTIAZEM HCL 360 MG PO SCH (09:00)
== END 2023-01-13 17:18 | disposition home or self-care (01) | DRG 194 ==
LOC: MED 01:45 → MTU 07:14
PROVIDERS: ADMIT Hospitalist; ATTEND Hospitalist
PROC: 5A09357 Assistance with Respiratory Ventilation, Less than 24 Consecutive Hours, Continuous Positive Airway Pressure (ICD-10-PCS; principal; 2023-01-13)
DX: I11.0 Hypertensive heart disease with heart failure (principal); J96.01 Acute respiratory failure with hypoxia; R65.10 Systemic inflammatory response syndrome (SIRS) of non-infectious origin without acute organ dysfunction; E44.0 Moderate protein-calorie malnutrition; I42.9 Cardiomyopathy, unspecified; E66.2 Morbid (severe) obesity with alveolar hypoventilation; J45.901 Unspecified asthma with (acute) exacerbation; Z68.45 Body mass index [BMI] 70 or greater, adult; I50.33 Acute on chronic diastolic (congestive) heart failure; R07.9 Chest pain, unspecified; Z90.49 Acquired absence of other specified parts of digestive tract; Z87.442 Personal history of urinary calculi; Z82.5 Family history of asthma and other chronic lower respiratory diseases; Z83.3 Family history of diabetes mellitus; Z82.3 Family history of stroke; Z84.1 Family history of disorders of kidney and ureter; Z82.49 Family history of ischemic heart disease and other diseases of the circulatory system; Z91.148 Patient's other noncompliance with medication regimen for other reason
CPT/HCPCS: 36415; 71045; 80053; 81003; 82550; 83605; 83880; 84484; 85025; 85610; 85730; 87040; 87086; 93005; 94640; 96374; 99285; J1940; Q0092

== ENCOUNTER 2023-01-18 23:50 | Emergency (ER) | payer OTHER ==
[~2023-01-18] VITALS: Ht 188 cm; Wt 269.9 kg
[~2023-01-18 23:50] MED LIST changes: +ALBU0.5S1 NEB; -AZIT500T8 PO; -CEFP200T20 PO; +DILT360C52 PO; +HYDR-118 PO; -PRED20TA5 PO; -SPIR25TA PO; -SULF-58 PO
[2023-01-19 00:19] VITALS: BP 157/103; PULSE 116; RESP 24; TEMP 97.4; O2SAT 95
[2023-01-19] MEDS ORDERED: KETOROLAC 60 MG/2 ML VIAL IM ONE (02:15)
[2023-01-19] MEDS ORDERED: MORPHINE SULFATE 4 MG/ML SYR IM ONE (02:15)
[2023-01-19] MEDS ORDERED: ACET-8905 PO (03:12)
[2023-01-19] MEDS ORDERED: NAPR-54 PO (03:12)
[2023-01-19 03:28] VITALS: BP 155/96; PULSE 110; RESP 24; TEMP 97.4; O2SAT 95
== END 2023-01-19 04:02 | disposition home or self-care (01) ==
LOC: MED 23:50
DX: S83.8X1A Sprain of other specified parts of right knee, initial encounter (principal); J45.909 Unspecified asthma, uncomplicated; I11.0 Hypertensive heart disease with heart failure; I50.9 Heart failure, unspecified; E11.9 Type 2 diabetes mellitus without complications; Z87.442 Personal history of urinary calculi; Z79.899 Other long term (current) drug therapy; W19.XXXA Unspecified fall, initial encounter; Y93.89 Activity, other specified; Y92.89 Other specified places as the place of occurrence of the external cause; Y99.8 Other external cause status
CPT/HCPCS: 73562; 96372; 99284; J1885; J2270; Q0092